=== PATIENT | female | born 1985 | race Caucasian/White ===

== ENCOUNTER 2016-12-20 20:08 | Emergency (ER) | payer OTHER ==
[2016-12-20 20:16] VITALS: BP 123/58; PULSE 80; RESP 18; TEMP 98.4
--- NOTE | 2016-12-20 20:23 | ED ---
Eye Problem HPI - General Chief complaint: Eye Problems Stated complaint: eye pain Time Seen by Provider: 12/20/16 20:17 Source: patient, RN notes reviewed Mode of arrival: ambulatory Limitations: no limitations - History of Present Illness Initial comments: 31-year-old female presents to emergency Department chief complaint of left eyebrow redness, itching, sandpaper like sensation. Patient states she's had this starting this morning. Patient states it started to clear drainage then turned yellow. Patient states that there is been no changes in vision. Patient states there is no pain is just irritated. Patient states that she hasn 't had any fever chills this denies any cough cold Raynaud's any fevers. Patient states she was concerned that she may have pink eye so she thought that she should be seen.Patient denies any recent fever, chills, shortness of breath , chest pain, back pain, abdominal pain, nausea vomiting, numbness or tingling, dysuria or hematuria, constipation or diarrhea, headaches or visual changes, or any other current symptoms. - Related Data Home Medications Medication Instructions Recorded Confirmed Acyclovir [Zovirax] 800 mg PO DAILY 12/20/16 12/20/16 Ibuprofen [Motrin] 200 - 400 mg PO Q6HR PRN 12/20/16 12/20/16 Previous Rx's Medication Instructions Recorded Tobramycin 0.3% Ophth Soln [Tobrex 1 drop LEFT EYE Q4H 5 Days 12/20/16 0.3% Ophth Soln] Allergies Allergy/AdvReac Type Severity Reaction Status Date / Time Penicillins Allergy Rash/Hives Verified 12/20/16 20:18 shellfish derived [Shellfish] Allergy Rash/Hives Verified 12/20/16 20:18 Review of Systems ROS Statement: Those systems with pertinent positive or pertinent negative responses have been documented in the HPI. ROS Other: All systems not noted in ROS Statement are negative. Past Medical History Past Medical History: No Reported History History of Any Multi-Drug Resistant Organisms: None Reported Past Surgical History: Section Additional Past Surgical History / Comment(s): D&C, endoscopy Past Psychological History: Anxiety, Depression Smoking Status: Never smoker Past Alcohol Use History: None Reported Past Drug Use History: None Reported General Exam Limitations: no limitations General appearance: alert, in no apparent distress Head exam: Present: atraumatic, normocephalic, normal inspection Eye exam: Present: PERRL, EOMI, conjunctival injection. Absent: scleral icterus , periorbital swelling, periorbital tenderness Expanded Eyelids: Normal Inspection: Right, Erythema: Left Pupils: Regular, Round: Bilateral Sclera/Conjunctival: Normal Inspection: Right, Injection: Left ENT exam: Present: normal exam, mucous membranes moist Neck exam: Present: normal inspection. Absent: tenderness, meningismus, lymphadenopathy Respiratory exam: Present: normal lung sounds bilaterally. Absent: respiratory distress, wheezes, rales, rhonchi, stridor Cardiovascular Exam: Present: regular rate, normal rhythm, normal heart sounds. Absent: systolic murmur, diastolic murmur, rubs, gallop, clicks Neurological exam: Present: alert, oriented X3, CN II-XII intact. Absent: motor sensory deficit Psychiatric exam: Present: normal affect, normal mood Skin exam: Present: warm, dry, intact, normal color. Absent: rash Course Vital Signs 12/20/16 20:14 Temperature 98.4 F Pulse Rate 80 Respiratory 18 Rate Blood Pressure 123/58 O2 Sat by Pulse 100 Oximetry Medical Decision Making - Medical Decision Making 31-year-old female presents emergency Department what appears to be a conjunctivitis to the left eye. At this time we will start patient on appropriate treatment for this. We discussed return parameters and follow-up. We discussed all the patient's questions. We did discuss additional care. Patient states she understood and all her questions have been answered. She'll be discharged. Disposition Clinical Impression: Conjunctivitis, left eye Disposition: HOME SELF-CARE Condition: Stable Instructions: Conjunctivitis (ED) Additional Instructions: Please use medication as discussed. Please follow up with family doctor if symptoms have not improved over the next two days. Please return to the emergency room if your symptoms increase or worsen or for any other concerns. Prescriptions: Tobramycin 0.3% Ophth Soln [Tobrex 0.3% Ophth Soln] 1 drop LEFT EYE Q4H 5 Days Referrals: Edgar Do MD [Primary Care Provider] - 1-2 days Time of Disposition: 20:23
== END 2016-12-20 20:39 | disposition home or self-care (01) ==
LOC: EC 20:08
DX: H10.9 Unspecified conjunctivitis (principal); Z88.0 Allergy status to penicillin
CPT/HCPCS: 99283

== ENCOUNTER 2017-02-24 02:28 | Emergency (ER) | payer OTHER ==
[2017-02-24 02:36] VITALS: BP 120/59; PULSE 65; RESP 18; TEMP 99.2
[2017-02-24] MEDS ORDERED: IBUPROFEN 600 MG TAB PO STA (02:41)
[2017-02-24] MEDS ORDERED: LIDOCAINE VISCOUS 300 MG/15 ML CUP MUCOUS MEM ONE (02:41)
--- NOTE | 2017-02-24 02:44 | ED ---
ENT HPI - General Chief complaint: ENT Stated complaint: Sore throat/difficulty swallowing/SOB Time Seen by Provider: 02/24/17 02:38 Source: patient, RN notes reviewed Mode of arrival: ambulatory Limitations: no limitations - History of Present Illness Initial comments: 31-year-old female presents to the emergency department with a chief complaint of sore throat. Patient states in the day yesterday she had a mild sore throat. Patient states the actual up she has some increased pain and swelling to the throat. Patient states it hurts to swallow. She states she was concerned due to the new pain and irritation so she thought that she should be seen. Patient denies chills. Denies a cough or sputum production. Patient denies any ear pain. Patient states she was concerned due to her continued pain and irritation so she thought that she should be evaluated. Patient denies any recent fever, chills, shortness of breath, chest pain, back pain, abdominal pain, nausea vomiting, numbness or tingling, dysuria or hematuria, constipation or diarrhea, headaches or visual changes, or any other current symptoms. - Related Data Home Medications Medication Instructions Recorded Confirmed Acyclovir [Zovirax] 800 mg PO DAILY 12/20/16 02/24/17 Allergies Allergy/AdvReac Type Severity Reaction Status Date / Time Penicillins Allergy Rash/Hives Verified 12/20/16 20:18 shellfish derived [Shellfish] Allergy Rash/Hives Verified 12/20/16 20:18 Review of Systems ROS Statement: Those systems with pertinent positive or pertinent negative responses have been documented in the HPI. ROS Other: All systems not noted in ROS Statement are negative. Past Medical History Past Medical History: No Reported History History of Any Multi-Drug Resistant Organisms: MRSA Date of last positivie culture/infection: 2012 MDRO Source:: right buttock Past Surgical History: Section Additional Past Surgical History / Comment(s): D&C, endoscopy Past Psychological History: Anxiety, Depression Smoking Status: Never smoker Past Alcohol Use History: None Reported Past Drug Use History: None Reported General Exam - General Exam Comments Initial Comments: General exam: Alert, active, comfortable in no apparent distress Head: Normocephalic Eyes: Normal reaction of pupils, equal size, normal range of extraocular motion Ears: normal external ear canals, pink tympanic membranes with normal cone of light Nose: clear with pink turbinates Throat: Mild erythema, no exudates with normal sized tonsils Neck: no masses, no nuchal rigidity Chest: no chest wall deformity Lungs: equal air entry with no crackles or wheeze CVS: S1 and S2 normal with no audible mumurs, regular rhythm Abdomen: no hepatosplenomegaly, normal bowel sounds, no guarding or rigidit Spine: no scoliosis or deformity Skin: no rashes Neurological: No focal deficits, tone is normal in all 4 extremities Limitations: no limitations Course Vital Signs 02/24/17 02:31 Temperature 99.2 F Pulse Rate 65 Respiratory 18 Rate Blood Pressure 120/59 O2 Sat by Pulse 98 Oximetry Medical Decision Making - Medical Decision Making 31-year-old male presents emergency Department chief complaint of a pharyngitis. This time shot was negative. Discussed this time patient is most symptomatic pharyngitis. Certainly discussed continue Motrin Tylenol for pain control. We discussed signs and follow-up. Patient stated that she understood. Plan. . She will be discharged. - Lab Data Lab Results 02/24/17 Range/Units 02:48 Group A Strep Rapid Negative (Negative) Disposition Clinical Impression: Acute viral pharyngitis Disposition: HOME SELF-CARE Condition: Stable Instructions: Pharyngitis (ED) Additional Instructions: Please use medication as discussed. Please follow up with family doctor if symptoms have not improved over the next two days. Please return to the emergency room if your symptoms increase or worsen or for any other concerns. Referrals: Edgar Do MD [Primary Care Provider] - 1-2 days Time of Disposition: 03:22
[2017-02-24] MEDS ORDERED: ACETAMINOPHEN TAB 500 MG TAB PO STA (02:56)
== END 2017-02-24 03:30 | disposition home or self-care (01) ==
LOC: EC 02:28
DX: J02.9 Acute pharyngitis, unspecified (principal); Z88.0 Allergy status to penicillin; Z91.013 Allergy to seafood
CPT/HCPCS: 87081; 87430; 99283

== ENCOUNTER 2017-06-15 10:09 | Emergency (ER) | payer OTHER ==
[2017-06-15 10:13] VITALS: BP 130/75; PULSE 73; RESP 17
[2017-06-15 10:28] VITALS: TEMP 98.3
--- NOTE | 2017-06-15 10:35 | ED ---
General Adult HPI - General Chief complaint: Upper Respiratory Infection Stated complaint: Chest congestion Time Seen by Provider: 06/15/17 10:11 Source: patient, RN notes reviewed Mode of arrival: ambulatory Limitations: no limitations - History of Present Illness Initial comments: This is a 31-year-old female presents emergency Department complaining of coughing and coughing up green sputum for a couple days. Patient states she has the chills which has not noted a fever. Patient states her body aches everywhere as well. Patient states she has a little bit of congestion but no facial pain. Patient denies any sore throat or ear pain. Patient denies any chest pain or difficulty breathing or shortness of breath. Patient denies any smoking history. Patient states she's had no rashes or lesions. Patient denies any abdominal pain patient denies nausea vomiting diarrhea. - Related Data Home Medications Medication Instructions Recorded Confirmed Acyclovir [Zovirax] 800 mg PO DAILY 12/20/16 02/24/17 Previous Rx's Medication Instructions Recorded Azithromycin [Zithromax Tri-Harley] 500 mg PO DAILY #3 tab 06/15/17 Allergies Allergy/AdvReac Type Severity Reaction Status Date / Time Penicillins Allergy Rash/Hives Verified 06/15/17 10:10 shellfish derived [Shellfish] Allergy Rash/Hives Verified 06/15/17 10:10 Review of Systems ROS Statement: Those systems with pertinent positive or pertinent negative responses have been documented in the HPI. ROS Other: All systems not noted in ROS Statement are negative. Past Medical History Past Medical History: No Reported History History of Any Multi-Drug Resistant Organisms: MRSA Date of last positivie culture/infection: 2012 MDRO Source:: right buttock Past Surgical History: Section Additional Past Surgical History / Comment(s): D&C, endoscopy Past Psychological History: Anxiety, Depression Smoking Status: Never smoker Past Alcohol Use History: None Reported Past Drug Use History: None Reported General Exam - General Exam Comments Initial Comments: GENERAL: Patient is well-developed and well-nourished. Patient is nontoxic and well- hydrated and is in mild distress. ENT: Neck is soft and supple. No significant lymphadenopathy is noted. Oropharynx is clear. Moist mucous membranes. Neck has full range of motion without eliciting any pain. EYES: The sclera were anicteric and conjunctiva were pink and moist. Extraocular movements were intact and pupils were equal round and reactive to light. Eyelids were unremarkable. PULMONARY: Unlabored respirations. Good breath sounds bilaterally. No audible rales rhonchi or wheezing was noted. CARDIOVASCULAR: There is a regular rate and rhythm without any murmurs gallops or rubs. ABDOMEN: Soft and nontender with normal bowel sounds. No palpable organomegaly was noted. There is no palpable pulsatile mass. SKIN: Skin is clear with no lesions or rashes and otherwise unremarkable. NEUROLOGIC: Patient is alert and oriented x3. Cranial nerves II through XII are grossly intact. Motor and sensory are also intact. Normal speech, volume and content. Symmetrical smile. MUSCULOSKELETAL: Normal extremities with adequate strength and full range of motion. No lower extremity swelling or edema. No calf tenderness. LYMPHATICS: No significant lymphadenopathy is noted PSYCHIATRIC: Normal psychiatric evaluation. Limitations: no limitations Course Vital Signs 06/15/17 06/15/17 10:11 10:26 Temperature 99.0 F 98.3 F Pulse Rate 73 Respiratory 17 Rate Blood Pressure 130/75 O2 Sat by Pulse 98 Oximetry Disposition Clinical Impression: Acute bronchitis Disposition: HOME SELF-CARE Instructions: Acute Bronchitis (ED) Prescriptions: Azithromycin [Zithromax Tri-Harley] 500 mg PO DAILY #3 tab Referrals: Edgar Do MD [Primary Care Provider] - 1-2 days Time of Disposition: 10:34
== END 2017-06-15 10:45 | disposition home or self-care (01) ==
LOC: EC 10:09
DX: J20.9 Acute bronchitis, unspecified (principal); Z88.0 Allergy status to penicillin; Z91.013 Allergy to seafood; Z79.899 Other long term (current) drug therapy
CPT/HCPCS: 99283

== ENCOUNTER 2018-07-12 21:37 | Emergency (ER) | payer OTHER ==
[2018-07-12 22:11] VITALS: RESP 16; TEMP 98.2
[2018-07-12 23:42] VITALS: BP 139/78; PULSE 78
[2018-07-12 23:50] LABS: Appearance,Urine Clear (Clear); Bilirubin,Urine Negative (Negative); Blood,Urine Negative (Negative); Color,Urine Yellow; Glucose,Urine (UA) Negative (Negative); Ketones,Urine Negative (Negative); Leukocyte Esterase,Urine Large (Negative); Mucus,Urine Rare /hpf; Nitrite,Urine Negative (Negative); PH, Urine 5.5 (5.0-8.0); Protein,Urine Negative (Negative); RBC,Urine 4 /hpf (0-5); Specific Gravity,Urine 1.026 (1.001-1.035); Squamous Epithelial Cell,Urine 1 /hpf (0-4); Urobilinogen,Urine <2.0 mg/dL (<2.0); WBC,Urine 4 /hpf (0-5)
[2018-07-13] MEDS ORDERED: cefTRIAXone 250 MG VIAL IM STA (00:43)
[2018-07-13] MEDS ORDERED: AZITHROMYCIN 250 MG TAB PO STA (00:43)
[2018-07-13] MEDS ORDERED: metroNIDAZOLE 500 MG TAB PO STA (00:43)
--- NOTE | 2018-07-13 00:44 | ED ---
Female Urogenital HPI - General Chief complaint: Urogenital Stated complaint: Female Time Seen by Provider: 07/12/18 23:08 Source: patient Mode of arrival: ambulatory - History of Present Illness Initial comments: This patient is a 32-year-old woman who presents to be evaluated for vaginal discharge, and pruritus. Patient denies having fever or chills. She is not having any abdominal pain. No dyspareunia. The patient does have concerns about possible STI exposure. MD Complaint: vaginal discharge -: days(s) Location: labia Radiation: non-radiating Severity: moderate Consistency: constant Improves with: none Worsens with: none - Related Data Home Medications Medication Instructions Recorded Confirmed Acyclovir [Zovirax] 800 mg PO DAILY 12/20/16 06/15/17 Previous Rx's Medication Instructions Recorded Azithromycin [Zithromax Tri-Harley] 500 mg PO DAILY #3 tab 06/15/17 Allergies Allergy/AdvReac Type Severity Reaction Status Date / Time Penicillins Allergy Rash/Hives Verified 06/15/17 10:37 shellfish derived [Shellfish] Allergy Rash/Hives Verified 06/15/17 10:37 Review of Systems ROS Statement: Those systems with pertinent positive or pertinent negative responses have been documented in the HPI. ROS Other: All systems not noted in ROS Statement are negative. Constitutional: Denies: fever, chills Respiratory: Denies: cough, dyspnea Cardiovascular: Denies: chest pain Gastrointestinal: Denies: abdominal pain Genitourinary: Reports: discharge. Denies: dysuria, frequency, hematuria, abnormal menses, dyspareunia Skin: Denies: rash Past Medical History Past Medical History: No Reported History Additional Past Medical History / Comment(s): herpes History of Any Multi-Drug Resistant Organisms: MRSA Date of last positivie culture/infection: 2012 MDRO Source:: right buttock Past Surgical History: Section Additional Past Surgical History / Comment(s): D&C, endoscopy Past Psychological History: Anxiety, Depression Smoking Status: Never smoker Past Alcohol Use History: None Reported Past Drug Use History: None Reported General Exam General appearance: alert, in no apparent distress ENT exam: Present: normal oropharynx Respiratory exam: Present: normal lung sounds bilaterally. Absent: respiratory distress, wheezes, rales, rhonchi, stridor Cardiovascular Exam: Present: regular rate, normal rhythm, normal heart sounds. Absent: systolic murmur, diastolic murmur, rubs, gallop GI/Abdominal exam: Present: soft. Absent: distended, tenderness, guarding, rebound, mass External exam: Present: normal external exam. Absent: erythema, swelling, lesions Speculum exam: Present: vaginal discharge. Absent: erythema, cervical discharge , vaginal bleeding, foreign body By manual exam: Present: cervical motion tenderness (Mild). Absent: adnexal tenderness, adnexal mass, uterine enlargement, uterine tenderness Skin exam: Present: warm, dry, intact, normal color. Absent: rash Course Vital Signs 07/12/18 07/12/18 22:07 23:40 Temperature 98.2 F Pulse Rate 84 78 Respiratory 16 16 Rate Blood Pressure 123/70 139/78 O2 Sat by Pulse 100 98 Oximetry Medical Decision Making - Medical Decision Making This patient is a 32-year-old woman presenting with moderate amount of vaginal discharge, some pruritus, and she does express concern about possibility of STI exposure. On the exam there is also some minimal cervical tenderness. We discussed that the labs are send out labs, and the risks and benefits of empiric treatments and she does elect to proceed with that, pending the return of the labs. The patient is given antibiotics and we discussed appropriate further care as well as return parameters. - Lab Data Lab Results 07/12/18 07/12/18 07/13/18 Range/Units 23:38 23:38 00:40 Urine Color Yellow Urine Appearance Clear (Clear) Urine pH 5.5 (5.0-8.0) Ur Specific [place] 1.026 (1.001-1.035) Urine Protein Negative (Negative) Urine Glucose (UA) Negative (Negative) Urine Ketones Negative (Negative) Urine Blood Negative (Negative) Urine Nitrite Negative (Negative) Urine Bilirubin Negative (Negative) Urine Urobilinogen <2.0 (<2.0) mg/dL Ur Leukocyte Esterase Large H (Negative) Urine RBC 4 (0-5) /hpf Urine WBC 4 (0-5) /hpf Ur Squamous Epith Cells 1 (0-4) /hpf Urine Mucus Rare H (None) /hpf Urine HCG, Qual Not Detected (Not Detectd) Chlamydia Source Vagina Chlamydia DNA (PCR) Negative (Neg,Equiv) N. gonorrhoeae Source N.gonorrhoeae DNA Probe (Neg,Equiv) 07/13/18 Range/Units 00:40 Urine Color Urine Appearance (Clear) Urine pH (5.0-8.0) Ur Specific [place] (1.001-1.035) Urine Protein (Negative) Urine Glucose (UA) (Negative) Urine Ketones (Negative) Urine Blood (Negative) Urine Nitrite (Negative) Urine Bilirubin (Negative) Urine Urobilinogen (<2.0) mg/dL Ur Leukocyte Esterase (Negative) Urine RBC (0-5) /hpf Urine WBC (0-5) /hpf Ur Squamous Epith Cells (0-4) /hpf Urine Mucus (None) /hpf Urine HCG, Qual (Not Detectd) Chlamydia Source Chlamydia DNA (PCR) (Neg,Equiv) N. gonorrhoeae Source Vagina N.gonorrhoeae DNA Probe Negative (Neg,Equiv) Disposition Clinical Impression: Cervicitis Disposition: HOME SELF-CARE Condition: Good Instructions: Cervicitis (ED) Is patient prescribed a controlled substance at d/c from ED?: No Referrals: Edgar Do MD [Primary Care Provider] - 1-2 days Celestino Valdovinos DO [Doctor of Osteopathic Medicine] - 1-2 days
[2018-07-15 14:06] LABS: N. gonorrhoeae,PCR Negative (Neg,Equiv); Neisseria Source Vagina
[2018-07-15 14:09] LABS: C. trachomatis,PCR Negative (Neg,Equiv); Chlamydia trachomatis Source Vagina
== END 2018-07-13 01:21 | disposition home or self-care (01) ==
LOC: EC 21:37
DX: N72 Inflammatory disease of cervix uteri (principal); Z86.14 Personal history of Methicillin resistant Staphylococcus aureus infection; Z88.0 Allergy status to penicillin; Z91.013 Allergy to seafood
CPT/HCPCS: 81001; 81025; 87491; 87591; 99284; 96372; J0696

== ENCOUNTER 2020-04-14 17:40 | Emergency (ER) | payer OTHER ==
[2020-04-14 17:51] VITALS: RESP 18
[2020-04-14] MEDS ORDERED: SODIUM CHLORIDE 0.9% 1,000 ML IV ONE (17:51)
--- NOTE | 2020-04-14 18:09 | ED ---
Female Urogenital HPI - General Chief complaint: Vaginal Bleeding Stated complaint: 19.5 wks preg/vaginal bleeding Time Seen by Provider: 04/14/20 17:51 Source: patient Mode of arrival: ambulatory Limitations: no limitations - History of Present Illness Initial comments: 34-year-old female presenting today for chief complaint of possible vaginal bleeding and . Patient states she is currently 19 weeks 5 days and has had sharp b/l lower pelvic pain for the past two months with this . Patient states that this has been evaluated by her OBGYN on multiple occasions and everything "checks out fine" Patient states she has no new pain and experienced the sharp lower pelvic pain yesterday-- she states that today she went to use the restroom and she and noticed a light pink tinge to the toilet paper as though she was just starting a period. Pt denies new pain. Patient states she wiped again and then noted that the toilet paper was even bit sharpener and looked almost normal. She states she did not note blood in her underwear. Denies lightheadness, presyncope on arrival. VS stable. BP within acceptable limits as well as HR. Patient denies additional complaints, denies vomiting, diarrhea, fevers, cough. Patient appears nontoxic in no distress on arrival. Dr. Stark out of [place] is OBGYN. - Related Data Home Medications Medication Instructions Recorded Confirmed Acyclovir [Zovirax] 800 mg PO DAILY 12/20/16 06/15/17 Previous Rx's Medication Instructions Recorded Azithromycin [Zithromax Tri-Harley] 500 mg PO DAILY #3 tab 06/15/17 Allergies Allergy/AdvReac Type Severity Reaction Status Date / Time Penicillins Allergy Rash/Hives Verified 04/14/20 17:44 shellfish derived [Shellfish] Allergy Rash/Hives Verified 04/14/20 17:44 Review of Systems ROS Statement: Those systems with pertinent positive or pertinent negative responses have been documented in the HPI. ROS Other: All systems not noted in ROS Statement are negative. Past Medical History Past Medical History: No Reported History Additional Past Medical History / Comment(s): herpes History of Any Multi-Drug Resistant Organisms: MRSA Date of last positivie culture/infection: 2012 MDRO Source:: right buttock Past Surgical History: Section Additional Past Surgical History / Comment(s): D&C, endoscopy Past Psychological History: Anxiety, Depression Smoking Status: Never smoker Past Alcohol Use History: None Reported Past Drug Use History: None Reported General Exam - General Exam Comments Initial Comments: General: The patient is awake and alert, in no distress, and does not appear acutely ill. Eye: +3 mm pupils are equal, round and reactive to light, extra-ocular movements are intact. No nystagmus. There is normal conjunctiva bilaterally. No signs of icterus. Ears, nose, mouth and throat: There are moist mucous membranes and no oral lesions. Neck: The neck is supple, there is no tenderness or JVD. Cardiovascular: There is a regular rate and rhythm. No murmur, rub or gallop is appreciated. Respiratory: Lungs are clear to auscultation, respirations are non-labored, breath sounds are equal. No wheezes, stridor, rales, or rhonchi. Gastrointestinal: Soft, non-distended, uterine enlargement consistent with abdomen without masses or organomegaly noted. There is no rebound or guarding present. Pelvic: [place] mucosa, did not place speculum deep, only tip to assess amount of bleeding (none appreciated) No digital exam was performed. Musculoskeletal: Normal ROM, no tenderness. Strength 5/5. Sensation intact. Radial pulses equal bilaterally 2+. Neurological: A&O x 3. CN II-XII intact grossly, There are no obvious motor or sensory deficits. Coordination appears grossly intact. Speech is normal. Skin: Skin is warm and dry and no rashes or lesions are noted. No LE edema. Psychiatric: Cooperative, appropriate mood & affect, normal judgment. Limitations: no limitations Course Vital Signs 04/14/20 04/14/20 17:45 20:30 Temperature 98.6 F 98 F Pulse Rate 89 80 Respiratory 18 18 Rate Blood Pressure 130/75 125/72 O2 Sat by Pulse 98 99 Oximetry - Reevaluation(s) Reevaluation #1: 04/14/20 19:25 Attempted to contact patient flight operation coordinator OBGYN for her clinic, awaiting call back to discuss placenta previa Reevaluation #2: SPoke with Dr. Stevens covering for patient OBGYN she states that the placenta previa is not a concern at this time, recommends discharge with pelvic rest whcih was discussed wtih patient. Patient is agreeable to this care plan and discharge at this time. Medical Decision Making - Medical Decision Making 34-year-old female presenting today for chief complaint of spotting and preg franki patient is 19.5 weeks. On ultrasound there is low lying placenta over the cervix concerning for placenta previa. Placental sandra. A consult patient's on- call OPTICAL MANAGER who stated that this is not of concern at this time given patient is hemodynamically stable with no bleeding currently. She recommended pelvic rest. In office next week patient has a scheduled appointment for Thursday. Patient has no additional complaints she appears well and will be discharged with OBGYN. US copy was provided to patient. Return parameters were discussed with patient who was agreeable to care plan and discharge at this time. Pt is to return for any bleeding immediately. Dr Milton agreeable to care plan and discharge. - Lab Data Result diagrams: 04/14/20 18:10 04/14/20 18:10 Lab Results 04/14/20 04/14/20 04/14/20 Range/Units 18:00 18:10 18:10 WBC 11.5 H (3.8-10.6) k/uL RBC 4.56 (3.80-5.40) m/uL Hgb 12.7 (11.4-16.0) gm/dL Hct 38.7 (34.0-46.0) % MCV 84.9 (80.0-100.0) fL MCH 27.8 (25.0-35.0) pg MCHC 32.7 (31.0-37.0) g/dL RDW 14.2 (11.5-15.5) % Plt Count 188 (150-450) k/uL Neutrophils % 79 % Lymphocytes % 14 % Monocytes % 4 % Eosinophils % 1 % Basophils % 0 % Neutrophils # 9.0 H (1.3-7.7) k/uL Lymphocytes # 1.6 (1.0-4.8) k/uL Monocytes # 0.5 (0-1.0) k/uL Eosinophils # 0.1 (0-0.7) k/uL Basophils # 0.0 (0-0.2) k/uL PT 9.9 (9.0-12.0) sec INR 0.9 (<1.2) APTT 24.0 (22.0-30.0) sec Sodium (137-145) mmol/L Potassium (3.5-5.1) mmol/L Chloride (98-107) mmol/L Carbon Dioxide (22-30) mmol/L Anion Gap mmol/L BUN (7-17) mg/dL Creatinine (0.52-1.04) mg/dL Est GFR (CKD-EPI)AfAm (>60 ml/min/1.73 sqM) Est GFR (CKD-EPI)NonAf (>60 ml/min/1.73 sqM) Glucose (74-99) mg/dL Calcium (8.4-10.2) mg/dL Total Bilirubin (0.2-1.3) mg/dL AST (14-36) U/L ALT (4-34) U/L Alkaline Phosphatase (38-126) U/L Total Protein (6.3-8.2) g/dL Albumin (3.5-5.0) g/dL Urine Color Light Yellow Urine Appearance Clear (Clear) Urine pH 5.5 (5.0-8.0) Ur Specific [place] 1.009 (1.001-1.035) Urine Protein Negative (Negative) Urine Glucose (UA) Negative (Negative) Urine Ketones 2+ H (Negative) Urine Blood Negative (Negative) Urine Nitrite Negative (Negative) Urine Bilirubin Negative (Negative) Urine Urobilinogen <2.0 (<2.0) mg/dL Ur Leukocyte Esterase Negative (Negative) Blood Type Blood Type Recheck Bld Type Recheck Status 04/14/20 04/14/20 Range/Units 18:10 18:10 WBC (3.8-10.6) k/uL RBC (3.80-5.40) m/uL Hgb (11.4-16.0) gm/dL Hct (34.0-46.0) % MCV (80.0-100.0) fL MCH (25.0-35.0) pg MCHC (31.0-37.0) g/dL RDW (11.5-15.5) % Plt Count (150-450) k/uL Neutrophils % % Lymphocytes % % Monocytes % % Eosinophils % % Basophils % % Neutrophils # (1.3-7.7) k/uL Lymphocytes # (1.0-4.8) k/uL Monocytes # (0-1.0) k/uL Eosinophils # (0-0.7) k/uL Basophils # (0-0.2) k/uL PT (9.0-12.0) sec INR (<1.2) APTT (22.0-30.0) sec Sodium 134 L (137-145) mmol/L Potassium 4.0 (3.5-5.1) mmol/L Chloride 105 (98-107) mmol/L Carbon Dioxide 20 L (22-30) mmol/L Anion Gap 9 mmol/L BUN 9 (7-17) mg/dL Creatinine 0.53 (0.52-1.04) mg/dL Est GFR (CKD-EPI)AfAm >90 (>60 ml/min/1.73 sqM) Est GFR (CKD-EPI)NonAf >90 (>60 ml/min/1.73 sqM) Glucose 90 (74-99) mg/dL Calcium 8.7 (8.4-10.2) mg/dL Total Bilirubin 0.2 (0.2-1.3) mg/dL AST 21 (14-36) U/L ALT 18 (4-34) U/L Alkaline Phosphatase 61 (38-126) U/L Total Protein 6.6 (6.3-8.2) g/dL Albumin 3.5 (3.5-5.0) g/dL Urine Color Urine Appearance (Clear) Urine pH (5.0-8.0) Ur Specific [place] (1.001-1.035) Urine Protein (Negative) Urine Glucose (UA) (Negative) Urine Ketones (Negative) Urine Blood (Negative) Urine Nitrite (Negative) Urine Bilirubin (Negative) Urine Urobilinogen (<2.0) mg/dL Ur Leukocyte Esterase (Negative) Blood Type O Positive Blood Type Recheck O Pos Bld Type Recheck Status No Disposition Clinical Impression: Placenta previa, Spotting affecting Disposition: HOME SELF-CARE Condition: Good Instructions (If sedation given, give patient instructions): Placenta Previa (ED), Pelvic Rest (ED) Additional Instructions: Please use medication as discussed. Please follow-up with OBGYN in the next week. Please bring ultrasound to the appointment, and return for any return bleeding, or pain. Pelvic rest as discussed. Please return to emergency room if the symptoms increase or worsen or for any other concerns. Is patient prescribed a controlled substance at d/c from ED?: No Referrals: Nonstaff,Physician [Primary Care Provider] - 1-2 days Time of Disposition: 20:07
[2020-04-14 18:25] LABS: Basophils % (A) 0 %; Eosinophils # (A) 0.1 k/uL (0-0.7); Eosinophils % (A) 1 %; HCT 38.7 % (34.0-46.0); HGB 12.7 gm/dL (11.4-16.0); Lymphocytes # (A) 1.6 k/uL (1.0-4.8); Lymphocytes % (A) 14 %; MCH 27.8 pg (25.0-35.0); MCHC 32.7 g/dL (31.0-37.0); MCV 84.9 fL (80.0-100.0); Monocytes # (A) 0.5 k/uL (0-1.0); Monocytes % (A) 4 %; Neutrophils % (A) 79 %; Platelet Count 188 k/uL (150-450); RBC 4.56 m/uL (3.80-5.40); RDW 14.2 % (11.5-15.5); WBC 11.5 k/uL (3.8-10.6)
[2020-04-14 18:34] LABS: ALT 18 U/L (4-34); AST 21 U/L (14-36); African American GFR (CKD) >90 (>60 ml/min/1.73 sqM); Albumin 3.5 g/dL (3.5-5.0); Alkaline Phosphatase 61 U/L (38-126); Anion Gap 9 mmol/L; Blood Urea Nitrogen 9 mg/dL (7-17); Calcium 8.7 mg/dL (8.4-10.2); Carbon Dioxide 20 mmol/L (22-30); Chloride 105 mmol/L (98-107); Glucose 90 mg/dL (74-99); INR 0.9 (<1.2); Non-African American GFR(CKD) >90 (>60 ml/min/1.73 sqM); Prothrombin Time 9.9 sec (9.0-12.0); Sodium 134 mmol/L (137-145); Total Bilirubin 0.2 mg/dL (0.2-1.3); Total Protein 6.6 g/dL (6.3-8.2)
--- NOTE | 2020-04-14 19:04 | US ---
EXAMINATION TYPE: US OB >= 14 wk fetus DATE OF EXAM: 04/14/2020 COMPARISON: None CLINICAL HISTORY: painIntermittent spotting and cramping x couple days TECHNIQUE: Transabdominal (TA) GESTATIONAL AGE / DATING Physician Established: (19 weeks/5 days) EDC: 11/03/2020 Dates by LMP: Unknown Dates by First Scan: No previous here Dates by Current Scan: (19 weeks/6 days) EDC: 09/02/2020 SURVEY IUP: Single PLACENTA: Posterior/Fundal, 2.2 x 2.0cm hypoechoic area seen within fundal portion of placenta PREVIA: Low Lying ANTHONY: 14.0 cm Normal CERVICAL LENGTH (transabdominal: norm > 3.0cm): 3.2 cm BIOMETRY PRESENTATION: Breech LIE: Transverse with head maternal R BPD: 4.4 cm 19 weeks / 3 days HC: 16.6 cm 19 weeks / 3 days AC: 15.1 cm 20 weeks / 3 days FL: 3.2 cm 20 weeks / 0 days ESTIMATED WEIGHT IN GRAMS: 329 grams ESTIMATED WEIGHT IN LBS/OZ: 0 lbs. 12 oz. WEIGHT PERCENTAGE BASED ON ESTABLISHED DATES: 65% HC/AC: 1.10 Normal FL/AC: 21% HEART RATE: 144 bpm RHYTHM: Normal Live single IUP measuring 19 weeks, 6 days with a heart rate of 144bpm and an estimated delivery date of 09/02/2020, 2.2 x 2.0cm hypoechoic area seen within fundal portion of placenta. IMPRESSION: 1. Low-lying placenta with the placental tip located approximately 1.4 cm in the cervix. 2. There is a hypoechoic area measuring 2.2 cm in the posterior fundal placenta. This appears interna l and therefore may represent a placental sandra. 3. Breech presentation of a single live intrauterine with a sonographic age of 19 weeks and 6 days and estimated date of delivery of 09/02/2020.
[2020-04-14 19:09] LABS: Appearance,Urine Clear (Clear); Bilirubin,Urine Negative (Negative); Blood,Urine Negative (Negative); Color,Urine Light Yellow; Glucose,Urine (UA) Negative (Negative); Ketones,Urine 2+ (Negative); Leukocyte Esterase,Urine Negative (Negative); Nitrite,Urine Negative (Negative); PH, Urine 5.5 (5.0-8.0); Protein,Urine Negative (Negative); Specific Gravity,Urine 1.009 (1.001-1.035); Urobilinogen,Urine <2.0 mg/dL (<2.0)
[2020-04-14 20:30] VITALS: BP 125/72; PULSE 80; TEMP 98
== END 2020-04-14 20:31 | disposition home or self-care (01) ==
LOC: EC 17:40
DX: O44.02 Complete placenta previa NOS or without hemorrhage, second trimester (principal); O26.852 Spotting complicating pregnancy, second trimester; Z3A.19 19 weeks gestation of pregnancy
CPT/HCPCS: 36415; 76805; 80053; 81003; 85025; 85610; 85730; 86900; 86901; 96360; 99284

== ENCOUNTER 2020-05-24 13:50 | Outpatient (CLI) | payer OTHER ==
[2020-05-24 14:52] LABS: Appearance,Urine Clear (Clear); Bilirubin,Urine Negative (Negative); Blood,Urine Negative (Negative); Color,Urine Yellow; Glucose,Urine (UA) Negative (Negative); Ketones,Urine Negative (Negative); Leukocyte Esterase,Urine Trace (Negative); Mucus,Urine Rare /hpf; Nitrite,Urine Negative (Negative); PH, Urine 6.5 (5.0-8.0); Protein,Urine Negative (Negative); RBC,Urine <1 /hpf (0-5); Specific Gravity,Urine 1.022 (1.001-1.035); Squamous Epithelial Cell,Urine 4 /hpf (0-4); Urobilinogen,Urine <2.0 mg/dL (<2.0); WBC,Urine 2 /hpf (0-5)
[2020-05-24 15:55] VITALS: BP 129/78; PULSE 80; RESP 15; TEMP 97.2
--- NOTE | 2020-06-10 12:48 | P.MSEPDOC ---
Presenting Problems - Arrival Data Date of Arrival on Unit: 05/24/20 Time of Arrival on Unit: 13:50 Mode of Transport: Wheelchair - Complaint OB-Reason for Admission/Chief Complaint: Other Comment: swelling in feet and legs Medical History - Information : 4 Para: 2 Term: 2 : 0 Abortions: Spontaneous or Elective: 1 Number of Living Children: 2 - Gestational Age Gestational Age by WENDY (wks/days): 25 Weeks and 3 Days Review of Systems - Review of Systems Constitutional: No problems Breast: No problems ENT: No problems Cardiovascular: No problems Respiratory: No problems Gastrointestinal: No problems Genitourinary: No problems Musculoskeletal: No problems Neurological: No problems Skin: No problems Vital Signs - Temperature Temperature: 97.2 F Temperature Source: Temporal Artery Scan - Pulse Brachial Pulse Rate: 80 Pulse Assessment Method: Automatic Cuff - Respirations Respiratory Rate: 15 Oxygen Delivery Method: Room Air O2 Sat by Pulse Oximetry: 98 - Blood Pressure Right Arm Sitting Blood Pressure: 129/78 Blood Pressure Mean: 95 Blood Pressure Source: Automatic Cuff Medical Screen Scoring (Pre) - Cervical Exam Dilation: Exam Deferred Effacement: Exam Deferred Membranes: Intact - Uterine Contractions Frequency: N/A Duration: N/A Intensity: N/A - Maternal Vital Signs Maternal Temperature: N/A Maternal Blood Pressure: N/A Signs of Preeclampsia: N/A Maternal Respirations: N/A - Maternal Trauma Maternal Trauma: N/A - Assessment - Baby A Baseline FHR: 135 Heart Rate - NICHD Category: Category I (Normal) = 0 NST: Reactive Position: N/A Station: N/A - Total Score - Baby A Total Score - Baby A: 0 - Total Score - Baby B Total Score - Baby B: 0 - Total Score - Baby C Total Score - Baby C: 0 - Level of Risk - Baby A Level of Risk - Baby A: Low (0-5) - Level of Risk - Baby B Level of Risk - Baby B: Low (0-5) - Level of Risk - Baby C Level of Risk - Baby C: Low (0-5) Physician Notification (Pre) - Physician Notified Physician Notified Date: 05/24/20 Physician Notified Time: 15:21 New Order Received: Yes - Notification Comment Comment: reported gest age, , pt here for swelling in lower extremeties,U/A and BP results. Reported concerns for pt's mental health and her thoughts of harming herself. Orders received to take pt to the ER for evaluatin per alexandre Serrato. RN wheeled pt to the ER registration Disposition - Disposition OB Disposition: Transfer to other dept./facility, Written follow up instructions reviewed Transferred to:: ER Discharge Date: 05/24/20 Discharge Time: 15:43 I agree with the RN Medical Screening Exam: Yes Risk & Benefit of care provided described in d/c instruction: Yes Diagnosis: RELATED CONDITIONS, UNSPECIFIED, SECOND TRIMESTER
== END 2020-05-24 15:43 | disposition other institution (70) ==
LOC: FBPOP 13:50
PROVIDERS: ATTEND Obstetrics & Gynecology
DX: O26.92 Pregnancy related conditions, unspecified, second trimester (principal); Z3A.25 25 weeks gestation of pregnancy
CPT/HCPCS: 81001; G0463; 99213

== ENCOUNTER 2020-05-24 15:38 | Emergency (ER) | payer OTHER ==
--- NOTE | 2020-05-24 16:04 | ED ---
Psych HPI - General Chief Complaint: Psychiatric Symptoms Stated Complaint: Depression Time Seen by Provider: 05/24/20 15:46 Source: patient, RN notes reviewed Mode of arrival: ambulatory - History of Present Illness Initial Comments: Is a 34-year-old female who currently is 25 weeks who was sent down from the labor and delivery department after being evaluated her pedal edema with complaints of depression and suicidal thoughts. Patient states she did have depressive type problems after her last daughter was born she's not on any current medication. She states that she has situational problems with her marriage at this time. She has had suicidal thoughts but states she would not act on it due to her other children and the impending of this next baby. She states she has been tearful. Feels detached and on engage with her family. She does state it would be self is to harm her self and not think her children. No new medications no fevers chills nausea vomiting sweats no other modifying factors at this time MD Complaint: suicidal ideation, feels depressed - Related Data Home Medications Medication Instructions Recorded Confirmed Acyclovir [Zovirax] 800 mg PO DAILY 12/20/16 05/24/20 Jkg-[id number] Acid 1 cap PO DAILY 05/24/20 05/24/20 [-U Capsule (formulary)] Allergies Allergy/AdvReac Type Severity Reaction Status Date / Time Penicillins Allergy Rash/Hives Verified 05/24/20 18:17 shellfish derived [Shellfish] Allergy Rash/Hives Verified 05/24/20 18:17 Review of Systems ROS Statement: Those systems with pertinent positive or pertinent negative responses have been documented in the HPI. ROS Other: All systems not noted in ROS Statement are negative. Past Medical History Past Medical History: No Reported History Additional Past Medical History / Comment(s): herpes History of Any Multi-Drug Resistant Organisms: None Reported, MRSA Date of last positivie culture/infection: 2012 MDRO Source:: right buttock Past Surgical History: Section Additional Past Surgical History / Comment(s): D&C, endoscopy Past Psychological History: Anxiety, Depression Smoking Status: Never smoker General Exam - General Exam Comments Initial Comments: This is a well-developed well-nourished awake alert oriented 3 female Limitations: no limitations General appearance: alert, in no apparent distress Head exam: Present: atraumatic, normocephalic, normal inspection Eye exam: Present: normal appearance, PERRL, EOMI. Absent: scleral icterus, conjunctival injection, periorbital swelling ENT exam: Present: normal exam, mucous membranes moist Neck exam: Present: normal inspection. Absent: tenderness, meningismus, lymphadenopathy Respiratory exam: Present: normal lung sounds bilaterally. Absent: respiratory distress, wheezes, rales, rhonchi, stridor Cardiovascular Exam: Present: regular rate, normal rhythm, normal heart sounds. Absent: systolic murmur, diastolic murmur, rubs, gallop, clicks GI/Abdominal exam: Present: other (Abdomen distended consistent with gestational age) Extremities exam: Present: pedal edema Back exam: Present: full ROM Neurological exam: Present: alert, oriented X3, CN II-XII intact Psychiatric exam: Present: depressed, flat affect Skin exam: Present: warm, dry, intact, normal color. Absent: rash Course Vital Signs 05/24/20 15:43 Temperature 98.4 F Pulse Rate 81 Respiratory 16 Rate Blood Pressure 127/75 O2 Sat by Pulse 99 Oximetry Medical Decision Making - Medical Decision Making The patient was evaluated by psychiatric service and will be discharged with a care plan. She does demonstrate evidence of situational depression. She states she will not hurt herself. - Lab Data Lab Results 05/24/20 05/24/20 05/24/20 Range/Units 16:05 16:05 16:05 Urine Color Yellow Urine Appearance Clear (Clear) Urine pH 6.5 (5.0-8.0) Ur Specific [place] 1.022 (1.001-1.035) Urine Protein Negative (Negative) Urine Glucose (UA) Negative (Negative) Urine Ketones Negative (Negative) Urine Blood Negative (Negative) Urine Nitrite Negative (Negative) Urine Bilirubin Negative (Negative) Urine Urobilinogen <2.0 (<2.0) mg/dL Ur Leukocyte Esterase Trace H (Negative) Urine RBC 1 (0-5) /hpf Urine WBC 2 (0-5) /hpf Ur Squamous Epith Cells 4 (0-4) /hpf Calcium Oxalate Crystal Occasional H (None) /hpf Urine Bacteria Occasional H (None) /hpf Urine Mucus Rare H (None) /hpf Urine HCG, Qual Detected (Not Detectd) Urine Opiates Screen Not Detected (NotDetected) Ur Oxycodone Screen Not Detected (NotDetected) Urine Methadone Screen Not Detected (NotDetected) Ur Propoxyphene Screen Not Detected (NotDetected) Ur Barbiturates Screen Not Detected (NotDetected) U Tricyclic Antidepress Not Detected (NotDetected) Ur Phencyclidine Scrn Not Detected (NotDetected) Ur Amphetamines Screen Not Detected (NotDetected) U Methamphetamines Scrn Not Detected (NotDetected) U Benzodiazepines Scrn Not Detected (NotDetected) Urine Cocaine Screen Not Detected (NotDetected) U Marijuana (THC) Screen Not Detected (NotDetected) Disposition Clinical Impression: Situational depression Disposition: HOME SELF-CARE Condition: Good Instructions (If sedation given, give patient instructions): Depression (ED), Suicide Prevention (ED) Is patient prescribed a controlled substance at d/c from ED?: No Referrals: Edgar Do MD [Primary Care Provider] - 1-2 days
[2020-05-24 16:27] LABS: Amphetamine Screen,Urine Not Detected (NotDetected); Barbiturate Screen,Urine Not Detected (NotDetected); Benzodiazepines Screen,Urine Not Detected (NotDetected); Cocaine Screen,Urine Not Detected (NotDetected); Methadone Screen, Urine Not Detected (NotDetected); Opiate Screen,Urine Not Detected (NotDetected); Oxycodone Screen, Urine Not Detected (NotDetected); Phencyclidine Screen,Urine Not Detected (NotDetected); Tricyclic Antidepressant,Urine Not Detected (NotDetected); Urn Cannabinoid Scrn Not Detected (NotDetected)
[2020-05-24 17:03] LABS: Appearance,Urine Clear (Clear); Bacteria,Urine Occasional /hpf; Bilirubin,Urine Negative (Negative); Blood,Urine Negative (Negative); Calcium Oxalate Crystals,Urine Occasional /hpf; Color,Urine Yellow; Glucose,Urine (UA) Negative (Negative); Ketones,Urine Negative (Negative); Leukocyte Esterase,Urine Trace (Negative); Mucus,Urine Rare /hpf; Nitrite,Urine Negative (Negative); PH, Urine 6.5 (5.0-8.0); Protein,Urine Negative (Negative); RBC,Urine 1 /hpf (0-5); Specific Gravity,Urine 1.022 (1.001-1.035); Squamous Epithelial Cell,Urine 4 /hpf (0-4); Urobilinogen,Urine <2.0 mg/dL (<2.0); WBC,Urine 2 /hpf (0-5)
[2020-05-24 19:12] VITALS: BP 126/82; PULSE 78; RESP 18; TEMP 98.7
== END 2020-05-24 19:12 | disposition home or self-care (01) ==
LOC: EC 15:38
DX: O99.342 Other mental disorders complicating pregnancy, second trimester (principal); O12.02 Gestational edema, second trimester; F43.21 Adjustment disorder with depressed mood; Z88.0 Allergy status to penicillin; Z91.013 Allergy to seafood; Z3A.25 25 weeks gestation of pregnancy; Z86.14 Personal history of Methicillin resistant Staphylococcus aureus infection
CPT/HCPCS: 80306; 81001; 81025; 82075; 99285

== ENCOUNTER 2020-06-01 13:54 | Emergency (ER) | payer OTHER ==
[2020-06-01 14:00] VITALS: BP 114/68; PULSE 97; RESP 18; TEMP 98.7
[2020-06-01 14:58] LABS: Appearance,Urine Clear (Clear); Bilirubin,Urine Negative (Negative); Blood,Urine Negative (Negative); Color,Urine Yellow; Glucose,Urine (UA) Negative (Negative); Ketones,Urine Negative (Negative); Leukocyte Esterase,Urine Negative (Negative); Nitrite,Urine Negative (Negative); Protein,Urine Negative (Negative); Specific Gravity,Urine 1.022 (1.001-1.035); Urobilinogen,Urine <2.0 mg/dL (<2.0)
--- NOTE | 2020-06-01 15:00 | ED ---
Female Urogenital HPI - General Chief complaint: Urogenital Stated complaint: here w/daughter wants covid screening Time Seen by Provider: 06/01/20 14:02 Source: patient Mode of arrival: ambulatory Limitations: no limitations - History of Present Illness Initial comments: Patient is a 34-year-old female presenting to the emergency Department with complaints of a vaginal odor that an ongoing for approximately 2-3 weeks. She states she thought she might have a yeast infection so has been using vaginal cream without improvement. She also admits that her has been cheating on her and is curious if she has any STDs. She is requesting treatment for all STDs. She denies any dysuria or increased frequency of urination. She states that she does notice an odor as well as some discharge described as "clear to whitish" which is making her wear a liner daily. She denies any vaginal itching. She denies any recent fever, chills. She has no further complaints at this time. Upon arrival to the ER, her vitals are stable. - Related Data Home Medications Medication Instructions Recorded Confirmed Acyclovir [Zovirax] 800 mg PO DAILY 12/20/16 06/01/20 Aqf-[id number]-[id number] Acid 1 cap PO DAILY 05/24/20 06/01/20 [-U Capsule (formulary)] Previous Rx's Medication Instructions Recorded metroNIDAZOLE [Flagyl] 500 mg PO BID 7 Days #14 tab 06/01/20 Allergies Allergy/AdvReac Type Severity Reaction Status Date / Time Penicillins Allergy Rash/Hives Verified 06/01/20 14:56 shellfish derived [Shellfish] Allergy Rash/Hives Verified 06/01/20 14:56 Review of Systems ROS Statement: Those systems with pertinent positive or pertinent negative responses have been documented in the HPI. ROS Other: All systems not noted in ROS Statement are negative. Past Medical History Past Medical History: No Reported History Additional Past Medical History / Comment(s): herpes History of Any Multi-Drug Resistant Organisms: None Reported, MRSA Date of last positivie culture/infection: 2012 MDRO Source:: right buttock Past Surgical History: Section Additional Past Surgical History / Comment(s): D&C, endoscopy Past Psychological History: Anxiety, Depression Smoking Status: Never smoker Past Alcohol Use History: None Reported Past Drug Use History: None Reported General Exam - General Exam Comments Initial Comments: GENERAL: Well-appearing, well-nourished and in no acute distress. HEAD: Atraumatic, normocephalic. EYES: Pupils equal round and reactive to light, extraocular movements intact, sclera anicteric, conjunctiva are normal. ENT: TMs normal, nares patent, oropharynx clear without exudates. Moist mucous membranes. NECK: Normal range of motion, supple without lymphadenopathy or JVD. LUNGS: Breath sounds clear to auscultation bilaterally and equal. No wheezes rales or rhonchi. HEART: Regular rate and rhythm without murmurs, rubs or gallops. ABDOMEN: Soft, nontender, normoactive bowel sounds. No guarding, no rebound. No masses appreciated. EXTREMITIES: Normal range of motion, no pitting or edema. No clubbing or cyanosis. NEUROLOGICAL: Normal speech, normal gait. PSYCH: Normal mood, normal affect. SKIN: Warm, Dry, normal turgor, no rashes or lesions noted. Limitations: no limitations External exam: Present: normal external exam Speculum exam: Present: vaginal discharge (Mild discharge present). Absent: cervical discharge, vaginal bleeding, foreign body By manual exam: Present: normal by manual exam Course Vital Signs 06/01/20 13:56 Temperature 98.7 F Pulse Rate 97 Respiratory 18 Rate Blood Pressure 114/68 O2 Sat by Pulse 96 Oximetry Medical Decision Making - Medical Decision Making Patient is a 34-year-old female here requesting treatment for possible STDs, vaginal odor. She is currently 26 weeks . Her vitals are stable, her exam is unremarkable except for some very mild vaginal discharge. Urine shows evidence of infection, no bacteria. Trichomonas is negative. Patient is still requesting treatment before her results are available. Gonorrhea, chlamydia, general culture are all still pending. Patient will be given Rocephin and azithromycin in the ER. I will also treat her for bacterial vaginosis and will send Flagyl to her pharmacy. Patient is in agreement with this plan of care. Patient will follow up with her MACHINE INKER if symptoms persist. She is stable for discharge. Return parameters were discussed with the patient she verbalized understanding. Case discussed with Dr. Schwarz. - Lab Data Lab Results 06/01/20 06/01/20 Range/Units 14:27 14:49 Urine Color Yellow Urine Appearance Clear (Clear) Urine pH 6.0 (5.0-8.0) Ur Specific [place] 1.022 (1.001-1.035) Urine Protein Negative (Negative) Urine Glucose (UA) Negative (Negative) Urine Ketones Negative (Negative) Urine Blood Negative (Negative) Urine Nitrite Negative (Negative) Urine Bilirubin Negative (Negative) Urine Urobilinogen <2.0 (<2.0) mg/dL Ur Leukocyte Esterase Negative (Negative) Trichomonas Ag (Rapid) Negative (Negative) Disposition Clinical Impression: Bacterial vaginosis Disposition: HOME SELF-CARE Condition: Stable Instructions (If sedation given, give patient instructions): Bacterial Vaginosis (ED) Additional Instructions: Please return to the Emergency Department if symptoms worsen or any other concerns. Take medication as prescribed, no alcohol with this medication. Follow-up with MACHINE INKER if symptoms persist. Prescriptions: metroNIDAZOLE [Flagyl] 500 mg PO BID 7 Days #14 tab Is patient prescribed a controlled substance at d/c from ED?: No Referrals: None,Stated [Primary Care Provider] - 1-2 days
[2020-06-01] MEDS ORDERED: cefTRIAXone 250 MG VIAL IM STA (15:15)
[2020-06-01] MEDS ORDERED: AZITHROMYCIN 250 MG TAB PO STA (15:15)
== END 2020-06-01 15:36 | disposition home or self-care (01) ==
LOC: EC 13:54
DX: O23.592 Infection of other part of genital tract in pregnancy, second trimester (principal); Z3A.26 26 weeks gestation of pregnancy; Z79.899 Other long term (current) drug therapy; Z88.0 Allergy status to penicillin; Z91.018 Allergy to other foods; Z86.19 Personal history of other infectious and parasitic diseases; Z86.14 Personal history of Methicillin resistant Staphylococcus aureus infection; Z98.890 Other specified postprocedural states
CPT/HCPCS: 81003; 87808; 87491; 87591; 87070; 99283; 96372; J0696

== ENCOUNTER 2020-07-03 16:03 | Emergency (ER) | payer OTHER ==
[2020-07-03 16:08] VITALS: TEMP 98.4
--- NOTE | 2020-07-03 16:31 | ED ---
SOB HPI - General Chief Complaint: Upper Respiratory Infection Stated Complaint: SOB Time Seen by Provider: 07/03/20 16:09 Source: patient, RN notes reviewed, old records reviewed Mode of arrival: ambulatory Limitations: no limitations - History of Present Illness Initial Comments: This is a 33-year-old female DF for evaluation of shortness of breath patient resents today for shortness of breath she is 31 weeks . No chest pain. No swelling of the lower extremities no pain in the legs. No recent sick contacts travel history or fever. No prior significant history of shortness of breath MD Complaint: shortness of breath -: days(s) Severity: mild Severity scale (1-10): 3 Quality: aching Consistency: constant Improves With: nothing Worsens With: nothing Known History Of: asthma Context: other () Associated Symptoms: cough Treatments Prior to Arrival: none - Related Data Home Medications Medication Instructions Recorded Confirmed Acyclovir [Zovirax] 800 mg PO DAILY 12/20/16 06/01/20 Sat-Daco-Kqlmf Acid 1 cap PO DAILY 05/24/20 06/01/20 [-U Capsule (formulary)] Previous Rx's Medication Instructions Recorded metroNIDAZOLE [Flagyl] 500 mg PO BID 7 Days #14 tab 06/01/20 Albuterol Sulfate [Proair Hfa] 1 - 2 puff INHALATION Q4H PRN #1 07/03/20 inhaler Azithromycin [Zithromax Z-pack] 0 mg PO DIRECTED #1 pack 07/03/20 Allergies Allergy/AdvReac Type Severity Reaction Status Date / Time Penicillins Allergy Rash/Hives Verified 07/03/20 16:10 shellfish derived [Shellfish] Allergy Rash/Hives Verified 07/03/20 16:10 Review of Systems ROS Statement: Those systems with pertinent positive or pertinent negative responses have been documented in the HPI. ROS Other: All systems not noted in ROS Statement are negative. Past Medical History Past Medical History: No Reported History Additional Past Medical History / Comment(s): herpes History of Any Multi-Drug Resistant Organisms: None Reported, MRSA Date of last positivie culture/infection: 2012 MDRO Source:: right buttock Past Surgical History: Section Additional Past Surgical History / Comment(s): D&C, endoscopy Past Psychological History: Anxiety, Depression Past Alcohol Use History: None Reported Past Drug Use History: None Reported General Exam Limitations: no limitations General appearance: alert, in no apparent distress Head exam: Present: atraumatic, normocephalic, normal inspection Eye exam: Present: normal appearance, PERRL, EOMI. Absent: scleral icterus, c onjunctival injection, periorbital swelling ENT exam: Present: normal exam, mucous membranes moist Neck exam: Present: normal inspection. Absent: tenderness, meningismus, lymphadenopathy Respiratory exam: Present: normal lung sounds bilaterally. Absent: respiratory distress, wheezes, rales, rhonchi, stridor Cardiovascular Exam: Present: regular rate, normal rhythm, normal heart sounds. Absent: systolic murmur, diastolic murmur, rubs, gallop, clicks GI/Abdominal exam: Present: soft, normal bowel sounds. Absent: distended, tenderness, guarding, rebound, rigid Extremities exam: Present: normal inspection, full ROM, normal capillary refill. Absent: tenderness, pedal edema, joint swelling, calf tenderness Back exam: Present: normal inspection Neurological exam: Present: alert, oriented X3, CN II-XII intact Psychiatric exam: Present: normal affect, normal mood Skin exam: Present: warm, dry, intact, normal color. Absent: rash Course Vital Signs 07/03/20 07/03/20 16:04 16:35 Temperature 98.4 F Pulse Rate 89 Respiratory 18 18 Rate Blood Pressure 133/85 O2 Sat by Pulse 98 Oximetry - Reevaluation(s) Reevaluation #1: 07/03/20 16:31 Medical records reviewed Reevaluation #2: 07/03/20 20:06 Patient informed results, questions answered no shortness of breath or distress Medical Decision Making - Medical Decision Making 24 female DF for evaluation patient with mild shortness of breath upper respiratory infection cough. Patient likely acute bronchitis no significant wheezing no shortness this of breath at rest, also is negative for DVT and p atient will continue outpatient evaluation - Lab Data Result diagrams: 07/03/20 17:01 07/03/20 17:01 Lab Results 07/03/20 07/03/20 07/03/20 Range/Units 17:01 17:01 17:01 WBC 12.3 H (3.8-10.6) k/uL RBC 4.39 (3.80-5.40) m/uL Hgb 12.3 (11.4-16.0) gm/dL Hct 37.4 (34.0-46.0) % MCV 85.3 (80.0-100.0) fL MCH 28.1 (25.0-35.0) pg MCHC 32.9 (31.0-37.0) g/dL RDW 15.4 (11.5-15.5) % Plt Count 164 (150-450) k/uL Neutrophils % 84 % Lymphocytes % 10 % Monocytes % 4 % Eosinophils % 2 % Basophils % 0 % Neutrophils # 10.3 H (1.3-7.7) k/uL Lymphocytes # 1.2 (1.0-4.8) k/uL Monocytes # 0.4 (0-1.0) k/uL Eosinophils # 0.3 (0-0.7) k/uL Basophils # 0.0 (0-0.2) k/uL Sodium 133 L (137-145) mmol/L Potassium 4.0 (3.5-5.1) mmol/L Chloride 109 H (98-107) mmol/L Carbon Dioxide 19 L (22-30) mmol/L Anion Gap 5 mmol/L BUN 5 L (7-17) mg/dL Creatinine 0.48 L (0.52-1.04) mg/dL Est GFR (CKD-EPI)AfAm >90 (>60 ml/min/1.73 sqM) Est GFR (CKD-EPI)NonAf >90 (>60 ml/min/1.73 sqM) Glucose 112 H (74-99) mg/dL Calcium 8.2 L (8.4-10.2) mg/dL Magnesium 1.8 (1.6-2.3) mg/dL Total Bilirubin 0.3 (0.2-1.3) mg/dL AST 19 (14-36) U/L ALT 11 (4-34) U/L Alkaline Phosphatase 76 (38-126) U/L Creatine Kinase 48 (30-135) U/L CK-MB (CK-2) 0.6 (0.0-2.4) ng/mL Troponin I <0.012 (0.000-0.034) ng/mL NT-Pro-B Natriuret Pep pg/mL Total Protein 5.6 L (6.3-8.2) g/dL Albumin 2.8 L (3.5-5.0) g/dL 07/03/20 Range/Units 17:01 WBC (3.8-10.6) k/uL RBC (3.80-5.40) m/uL Hgb (11.4-16.0) gm/dL Hct (34.0-46.0) % MCV (80.0-100.0) fL MCH (25.0-35.0) pg MCHC (31.0-37.0) g/dL RDW (11.5-15.5) % Plt Count (150-450) k/uL Neutrophils % % Lymphocytes % % Monocytes % % Eosinophils % % Basophils % % Neutrophils # (1.3-7.7) k/uL Lymphocytes # (1.0-4.8) k/uL Monocytes # (0-1.0) k/uL Eosinophils # (0-0.7) k/uL Basophils # (0-0.2) k/uL Sodium (137-145) mmol/L Potassium (3.5-5.1) mmol/L Chloride (98-107) mmol/L Carbon Dioxide (22-30) mmol/L Anion Gap mmol/L BUN (7-17) mg/dL Creatinine (0.52-1.04) mg/dL Est GFR (CKD-EPI)AfAm (>60 ml/min/1.73 sqM) Est GFR (CKD-EPI)NonAf (>60 ml/min/1.73 sqM) Glucose (74-99) mg/dL Calcium (8.4-10.2) mg/dL Magnesium (1.6-2.3) mg/dL Total Bilirubin (0.2-1.3) mg/dL AST (14-36) U/L ALT (4-34) U/L Alkaline Phosphatase (38-126) U/L Creatine Kinase (30-135) U/L CK-MB (CK-2) (0.0-2.4) ng/mL Troponin I (0.000-0.034) ng/mL NT-Pro-B Natriuret Pep 60 pg/mL Total Protein (6.3-8.2) g/dL Albumin (3.5-5.0) g/dL - EKG Data -: EKG Interpreted by Me (EKG shows sinus rhythm 85 MS 125 QRS 94 QTC 418) - Radiology Data Radiology results: report reviewed (Chest x-rays negative for acute disease), im age reviewed Disposition Clinical Impression: Asthmatic bronchitis, Bronchitis Disposition: HOME SELF-CARE Condition: Good Instructions (If sedation given, give patient instructions): Acute Bronchitis (ED) Prescriptions: Albuterol Sulfate [Proair Hfa] 1 - 2 puff INHALATION Q4H PRN #1 inhaler PRN Reason: Shortness Of Breath Azithromycin [Zithromax Z-pack] 0 mg PO DIRECTED #1 pack Is patient prescribed a controlled substance at d/c from ED?: No Referrals: Edgar Do MD [Primary Care Provider] - 1-2 days
[2020-07-03 17:18] LABS: Basophils % (A) 0 %; Eosinophils # (A) 0.3 k/uL (0-0.7); Eosinophils % (A) 2 %; HCT 37.4 % (34.0-46.0); HGB 12.3 gm/dL (11.4-16.0); Lymphocytes # (A) 1.2 k/uL (1.0-4.8); Lymphocytes % (A) 10 %; MCH 28.1 pg (25.0-35.0); MCHC 32.9 g/dL (31.0-37.0); MCV 85.3 fL (80.0-100.0); Mean Platelet Volume 8.6; Monocytes # (A) 0.4 k/uL (0-1.0); Monocytes % (A) 4 %; Neutrophils # (A) 10.3 k/uL (1.3-7.7); Neutrophils % (A) 84 %; Platelet Count 164 k/uL (150-450); RBC 4.39 m/uL (3.80-5.40); RDW 15.4 % (11.5-15.5); WBC 12.3 k/uL (3.8-10.6)
[2020-07-03 17:30] LABS: ALT 11 U/L (4-34); AST 19 U/L (14-36); African American GFR (CKD) >90 (>60 ml/min/1.73 sqM); Albumin 2.8 g/dL (3.5-5.0); Alkaline Phosphatase 76 U/L (38-126); Anion Gap 5 mmol/L; Blood Urea Nitrogen 5 mg/dL (7-17); Calcium 8.2 mg/dL (8.4-10.2); Carbon Dioxide 19 mmol/L (22-30); Chloride 109 mmol/L (98-107); Creatine Kinase 48 U/L (30-135); Glucose 112 mg/dL (74-99); Magnesium 1.8 mg/dL (1.6-2.3); Non-African American GFR(CKD) >90 (>60 ml/min/1.73 sqM); Sodium 133 mmol/L (137-145); Total Bilirubin 0.3 mg/dL (0.2-1.3); Total Protein 5.6 g/dL (6.3-8.2)
--- NOTE | 2020-07-03 17:44 | XR ---
EXAMINATION TYPE: XR chest 2V DATE OF EXAM: 07/03/2020 COMPARISON: Prior chest x-ray 11/13/2016 HISTORY: Difficulty breathing TECHNIQUE: Frontal and lateral views of the chest are obtained. FINDINGS: There is no focal air space opacity, pleural effusion, or pneumothorax seen. The cardiac silhouette size is within normal limits. The osseous structures are intact. IMPRESSION: No acute cardiopulmonary process.
[2020-07-03 17:52] LABS: Creatine Kinase MB 0.6 ng/mL (0.0-2.4); Troponin I <0.012 ng/mL (0.000-0.034)
--- NOTE | 2020-07-03 19:43 | US ---
EXAMINATION TYPE: US venous doppler duplex LE DATE OF EXAM: 07/03/2020 7:09 PM COMPARISON: NONE CLINICAL HISTORY: dvt. R/O DVT. Swelling in legs. Pt is SOB. Pt is 31 weeks . No hx of DVT. P atient does not take blood thinners. SIDE PERFORMED: Bilateral TECHNIQUE: The lower extremity deep venous system is examined utilizing real time linear array sonog rolf with graded compression, doppler sonography and color-flow sonography. VESSELS IMAGED: External Iliac Vein (EIV) Common Femoral Vein Deep Femoral Vein Greater Saphenous Vein * Femoral Vein Popliteal Vein Small Saphenous Vein * Proximal Calf Veins (* superficial vessels) Slightly limited with color artifact due to edema. The left and right common femoral, superficial fem oral, popliteal veins all compress normally and show no abnormal luminal echoes. There are normal vas cular waveforms. Right Leg: No evidence of DVT in veins imaged at this time from prox calf veins to EIV. Left Leg: No evidence of DVT in veins imaged at this time from prox calf veins to EIV. IMPRESSION: No evident deep venous thrombosis at or above the knees.
[2020-07-03 20:19] VITALS: BP 129/79; PULSE 88; RESP 20
== END 2020-07-03 20:20 | disposition home or self-care (01) ==
LOC: EC 16:03
DX: O99.513 Diseases of the respiratory system complicating pregnancy, third trimester (principal); J45.909 Unspecified asthma, uncomplicated; Z3A.31 31 weeks gestation of pregnancy; Z88.0 Allergy status to penicillin; Z91.013 Allergy to seafood
CPT/HCPCS: 36415; 71046; 80053; 82550; 82553; 83735; 83880; 84484; 85025; 93005; 93970; 99285

== ENCOUNTER 2020-07-18 09:42 | Outpatient (CLI) | payer OTHER ==
[2020-07-18 11:37] VITALS: BP 120/66; PULSE 74; RESP 18; TEMP 97.5
--- NOTE | 2020-08-21 09:41 | P.MSEPDOC ---
Presenting Problems - Arrival Data Date of Arrival on Unit: 07/18/20 Time of Arrival on Unit: 09:42 Mode of Transport: Ambulatory - Complaint OB-Reason for Admission/Chief Complaint: Pain Comment: low back pain, cramping, groin pain Medical History - Information : 4 Para: 2 Term: 2 : 0 Abortions: Spontaneous or Elective: 1 Number of Living Children: 2 - Gestational Age Gestational Age by WENDY (wks/days): 33 Weeks and 2 Days - History Complications: Prior Review of Systems - Review of Systems Constitutional: No problems Breast: No problems ENT: No problems Cardiovascular: No problems Respiratory: No problems Gastrointestinal: No problems Genitourinary: No problems Musculoskeletal: No problems Neurological: No problems Skin: No problems Vital Signs - Temperature Temperature: 97.5 F Temperature Source: Temporal Artery Scan - Pulse Right Brachial Pulse Rate: 74 Pulse Assessment Method: Automatic Cuff - Respirations Respiratory Rate: 18 Oxygen Delivery Method: Room Air O2 Sat by Pulse Oximetry: 99 - Blood Pressure Right Arm Blood Pressure: 120/66 Blood Pressure Mean: 84 Blood Pressure Source: Automatic Cuff Medical Screen Scoring (Pre) - Cervical Exam Dilation: Exam Deferred Effacement: Exam Deferred Membranes: Intact - Uterine Contractions Frequency: N/A Duration: N/A Intensity: N/A - Maternal Vital Signs Maternal Temperature: N/A Maternal Blood Pressure: N/A Maternal Respirations: N/A - Maternal Trauma Maternal Trauma: N/A - Assessment - Baby A Baseline FHR: 135 Heart Rate - NICHD Category: Category I (Normal) = 0 NST: Reactive Position: N/A Station: N/A - Total Score - Baby A Total Score - Baby A: 0 - Total Score - Baby B Total Score - Baby B: 0 - Total Score - Baby C Total Score - Baby C: 0 - Level of Risk - Baby A Level of Risk - Baby A: Low (0-5) - Level of Risk - Baby B Level of Risk - Baby B: Low (0-5) - Level of Risk - Baby C Level of Risk - Baby C: Low (0-5) Physician Notification (Pre) - Physician Notified Physician Notified Date: 07/18/20 Physician Notified Time: 10:40 New Order Received: Yes - Notification Comment Comment: discharged pt home, reactive nst, amniosure negative, cervix closed/ thick/high Disposition - Disposition OB Disposition: Triage, Discharge to home, Written follow up instructions reviewed Discharge Date: 07/18/20 Discharge Time: 10:45 I agree with the RN Medical Screening Exam: Yes Risk & Benefit of care provided described in d/c instruction: Yes Diagnosis: FALSE LABOR BEFORE 37 COMPLETED WEEKS OF GEST, THIRD TRI
== END 2020-07-18 10:45 | disposition home or self-care (01) ==
LOC: FBPOP 09:42
PROVIDERS: ATTEND Obstetrics & Gynecology
DX: O47.03 False labor before 37 completed weeks of gestation, third trimester (principal); Z3A.33 33 weeks gestation of pregnancy
CPT/HCPCS: 59025; 84112; G0463; 99213

== ENCOUNTER 2021-09-20 08:36 | Emergency (ER) | payer OTHER ==
[2021-09-20 08:40] VITALS: BP 136/90; PULSE 77; RESP 18; TEMP 97.8
[2021-09-20] MEDS ORDERED: cefTRIAXone 500 MG VIAL IM STA (08:51)
[2021-09-20] MEDS ORDERED: metroNIDAZOLE 500 MG TAB PO STA (09:02)
[2021-09-20] MEDS ORDERED: AZITHROMYCIN 250 MG TAB PO STA (09:04)
--- NOTE | 2021-09-20 09:24 | ED ---
Female Urogenital HPI - General Chief complaint: Urogenital Stated complaint: STD check Time Seen by Provider: 09/20/21 08:50 Source: patient, RN notes reviewed Mode of arrival: ambulatory Limitations: no limitations - History of Present Illness Initial comments: Patient is a 36-year-old female that presents to the emergency Department complaining of vaginal discharge is yellow for the past 5 days. She notes that this is not the first time she's expresses and last time was an STD. She notes that her has been up to no good. She notes that she just wants antibiotics. She denied any other issues or complaints. She was otherwise well-appearing. She denied chest pain shortness of breath headache nausea vomiting diarrhea constipation fever fatigue chills. Last Menstrual Period: 09/16/21 - Related Data Home Medications Medication Instructions Recorded Confirmed Acyclovir [Zovirax] 800 mg PO DAILY 12/20/16 07/18/20 Pdi-Ttyo-Zisie Acid 1 cap PO DAILY 05/24/20 07/18/20 [-U Capsule (formulary)] Allergies Allergy/AdvReac Type Severity Reaction Status Date / Time Penicillins Allergy Rash/Hives Verified 09/20/21 08:40 shellfish derived [Shellfish] Allergy Rash/Hives Verified 09/20/21 08:40 Review of Systems ROS Statement: Those systems with pertinent positive or pertinent negative responses have been documented in the HPI. ROS Other: All systems not noted in ROS Statement are negative. Past Medical History Past Medical History: No Reported History Additional Past Medical History / Comment(s): herpes History of Any Multi-Drug Resistant Organisms: None Reported, MRSA Date of last positivie culture/infection: 2012 MDRO Source:: right buttock Past Surgical History: Section Additional Past Surgical History / Comment(s): D&C, endoscopy Past Psychological History: Anxiety, Depression Smoking Status: Never smoker Past Alcohol Use History: Occasional General Exam Limitations: no limitations General appearance: alert, in no apparent distress Head exam: Present: atraumatic, normocephalic, normal inspection Eye exam: Present: normal appearance, PERRL, EOMI. Absent: scleral icterus, conjunctival injection, periorbital swelling ENT exam: Present: normal exam, mucous membranes moist Neck exam: Present: normal inspection Respiratory exam: Present: normal lung sounds bilaterally. Absent: respiratory distress, wheezes, rales, rhonchi, stridor Cardiovascular Exam: Present: regular rate, normal rhythm, normal heart sounds. Absent: systolic murmur, diastolic murmur, rubs, gallop, clicks GI/Abdominal exam: Present: soft, normal bowel sounds. Absent: distended, tenderness, guarding, rebound, rigid Rectal exam: Present: deferred Extremities exam: Present: normal inspection, full ROM, normal capillary refill. Absent: tenderness, pedal edema, joint swelling, calf tenderness Neurological exam: Present: alert, oriented X3 Psychiatric exam: Present: normal affect, normal mood Skin exam: Present: warm, dry, intact, normal color. Absent: rash Course Vital Signs 09/20/21 08:36 Temperature 97.8 F Pulse Rate 77 Respiratory 18 Rate Blood Pressure 136/90 O2 Sat by Pulse 98 Oximetry Medical Decision Making - Medical Decision Making 36-year-old female with yellow-green vaginal discharge 5 days wanting antibiotics for STD. Patient deferred testing states that last time this happened it wasn't STD here antibiotics and it took care of him. 500 mg of Rocephin, 2 g of metronidazole 1 g of azithromycin ordered. Case discussed with Dr. Schwarz, patient discharge home with follow-up with primary care. Disposition Clinical Impression: Sexually transmitted disease Disposition: HOME SELF-CARE Condition: Stable Instructions (If sedation given, give patient instructions): Sexually Transmitted Diseases (ED) Additional Instructions: Please return to the ED if symptoms persist or worsen. follow up with primary care in 1-2 days no sexual activity for 2 weeks. Is patient prescribed a controlled substance at d/c from ED?: No Referrals: Edgar Do MD [Primary Care Provider] - 1-2 days Time of Disposition: 09:24
== END 2021-09-20 10:00 | disposition home or self-care (01) ==
LOC: EC 08:36
DX: A64 Unspecified sexually transmitted disease (principal); F41.9 Anxiety disorder, unspecified; F32.9 Major depressive disorder, single episode, unspecified; Z88.0 Allergy status to penicillin
CPT/HCPCS: 99283; 96372; J0696

== ENCOUNTER 2021-09-28 20:47 | Emergency (ER) | payer OTHER ==
[2021-09-28 21:17] VITALS: BP 114/70; PULSE 77; RESP 20; TEMP 98.7
--- NOTE | 2021-09-28 21:59 | ED ---
Eye Problem HPI - General Chief complaint: Eye Problems Stated complaint: Poss [place] [facility] Time Seen by Provider: 09/28/21 21:19 Source: patient, RN notes reviewed Mode of arrival: ambulatory Limitations: no limitations - History of Present Illness Initial comments: Patient is a 36-year-old female that presents to the emergency room complaining of left eye irritation and clear discharge. Patient notes that she has had pinkeye in the past and this feels very similar. She is requesting eyedrops at this time. She was otherwise well-appearing. She denied any issues or complaints. She denied chest pain first breath headache nausea vomiting diarrhea constipation fever fatigue chills. - Related Data Home Medications Medication Instructions Recorded Confirmed Acyclovir [Zovirax] 800 mg PO DAILY 12/20/16 07/18/20 Rsl-Bvat-Ijnkk Acid 1 cap PO DAILY 05/24/20 07/18/20 [-U Capsule (formulary)] Allergies Allergy/AdvReac Type Severity Reaction Status Date / Time Penicillins Allergy Rash/Hives Verified 09/28/21 21:17 shellfish derived [Shellfish] Allergy Rash/Hives Verified 09/28/21 21:17 Review of Systems ROS Statement: Those systems with pertinent positive or pertinent negative responses have been documented in the HPI. ROS Other: All systems not noted in ROS Statement are negative. Past Medical History Past Medical History: No Reported History Additional Past Medical History / Comment(s): herpes History of Any Multi-Drug Resistant Organisms: None Reported, MRSA Date of last positivie culture/infection: 2012 MDRO Source:: right buttock Past Surgical History: Section Additional Past Surgical History / Comment(s): D&C, endoscopy Past Psychological History: Anxiety, Depression Smoking Status: Never smoker Past Alcohol Use History: Occasional General Exam Limitations: no limitations General appearance: alert, in no apparent distress Head exam: Present: atraumatic, normocephalic, normal inspection Eye exam: Present: normal appearance, PERRL, EOMI, other (Minimal erythema left eye, no drainage noted.). Absent: scleral icterus, conjunctival injection, periorbital swelling ENT exam: Present: normal exam, mucous membranes moist Neck exam: Present: normal inspection Respiratory exam: Present: normal lung sounds bilaterally. Absent: respiratory distress, wheezes, rales, rhonchi, stridor Cardiovascular Exam: Present: regular rate, normal rhythm, normal heart sounds. Absent: systolic murmur, diastolic murmur, rubs, gallop, clicks Extremities exam: Present: normal inspection, full ROM, normal capillary refill. Absent: tenderness, pedal edema, joint swelling, calf tenderness Neurological exam: Present: alert, oriented X3 Psychiatric exam: Present: normal affect, normal mood Skin exam: Present: warm, dry, intact, normal color. Absent: rash Course Vital Signs 09/28/21 21:10 Temperature 98.7 F Pulse Rate 77 Respiratory 20 Rate Blood Pressure 114/70 O2 Sat by Pulse 99 Oximetry Medical Decision Making - Medical Decision Making 36-year-old female complaining of left eye irritation. Requesting eyedrops. Upon physical exam left eye does appear to be mildly erythematous. Patient is very will discharge home with antibiotic drops. Case discussed with Dr. lopez patient discharge home. Disposition Clinical Impression: Conjunctivitis Disposition: HOME SELF-CARE Condition: Stable Instructions (If sedation given, give patient instructions): Conjunctivitis (ED) Additional Instructions: Please return to the Emergency Department if symptoms worsen or any other concerns. Follow-up with primary care 1-2 days. Take antibiotic drops as prescribed. Is patient prescribed a controlled substance at d/c from ED?: No Referrals: Edgar Do MD [Primary Care Provider] - 1-2 days Time of Disposition: 21:59
[2021-09-29] MEDS ORDERED: POLYMYXIN B-TRIMETHOPRIM SULF (10,000-1) OPHTH DROPS 10 ML BTL BOTH EYES SCH
== END 2021-09-28 22:08 | disposition home or self-care (01) ==
LOC: EC 20:47
DX: H10.9 Unspecified conjunctivitis (principal); Z88.0 Allergy status to penicillin; Z91.013 Allergy to seafood
CPT/HCPCS: 99283

== ENCOUNTER → 2022-02-11 | Outpatient (CLI) | payer OTHER ==
--- NOTE | 2022-02-11 20:23 | CT ---
EXAMINATION TYPE: CT sinus wo con DATE OF EXAM: 02/11/2022 COMPARISON: NONE HISTORY: CHRONIC SINUSITIS CT DLP: 396 mGycm. Automated Exposure Control for Dose Reduction was Utilized. TECHNIQUE: CT scan of the sinuses is performed without contrast, axial images are obtained, coronal r eformatted images are also reviewed. FINDINGS: Small amount of patchy fluid inferiorly in the right maxillary sinus otherwise paranasal si nuses are clear. The ostiomeatal complex is patent bilaterally on the coronal images. Nasal septum i s deviated to right of midline. Visualized portion of mastoid air cells show no abnormal opacification. The globes are intact bilate rally. Visualized brain parenchyma is within normal limits. IMPRESSION: Focal mild acute sinusitis inferior right maxillary sinus.
== END | disposition home or self-care (01) ==
LOC: RADCTMAIN 17:00
PROVIDERS: ATTEND Otolaryngology Facial Plastic Surgery
DX: J01.00 Acute maxillary sinusitis, unspecified (principal)
CPT/HCPCS: 70486

== ENCOUNTER 2023-09-14 17:31 | Emergency (ER) | payer OTHER ==
[2023-09-14 17:51] VITALS: TEMP 98.2
[2023-09-14] MEDS ORDERED: KETOROLAC 15 MG/ML 1 ML VIAL IVP STA (18:18)
--- NOTE | 2023-09-14 18:20 | ED ---
Chest Pain HPI - General Chief Complaint: Chest Pain Stated Complaint: KEVIN, Chest Pain, Left arm pain Time Seen by Provider: 09/14/23 17:45 Source: patient Mode of arrival: ambulatory Limitations: no limitations - History of Present Illness Initial Comments: This patient is a 37 year old woman who complains of having pain that started around noon in the left chest radiating to neck and back. She states that it is an aching pain gets worse if she takes a deep breath or sometimes with movement. She is remaining still and taking shallow breaths there is really no pain. She did not have any injury. She has no accompanying symptoms, no fever or chills. No cough or dyspnea. No nausea or vomiting. No diaphoresis, palpitations, lightheadedness or syncope. MD Complaint: chest pain Onset/Timin -: hour(s) Onset: during rest Pain Location: left chest Pain Radiation: back, neck Severity: moderate Quality: aching Consistency: intermittent Improves With: remaining still Worsens With: inspiration, movement Context: recent illness Treatments Prior to Arrival: none - Related Data Home Medications Medication Instructions Recorded Confirmed Acyclovir [Zovirax] 800 mg PO DAILY 12/20/16 07/18/20 Egr-Sacg-[id number] Acid 1 cap PO DAILY 05/24/20 07/18/20 [-U Capsule (formulary)] Previous Rx's Medication Instructions Recorded Ibuprofen [Motrin] 600 mg PO Q8HR PRN #20 tab 09/14/23 Allergies Allergy/AdvReac Type Severity Reaction Status Date / Time Penicillins Allergy Rash/Hives Verified 09/14/23 17:40 shellfish derived [Shellfish] Allergy Rash/Hives Verified 09/14/23 17:40 Review of Systems ROS Statement: Those systems with pertinent positive or pertinent negative responses have been documented in the HPI. ROS Other: All systems not noted in ROS Statement are negative. Constitutional: Denies: fever, chills Respiratory: Denies: cough, dyspnea Cardiovascular: Reports: chest pain. Denies: palpitations, dyspnea on exertion, edema, syncope Gastrointestinal: Denies: abdominal pain, nausea, vomiting, diarrhea Genitourinary: Denies: dysuria, hematuria Musculoskeletal: Denies: back pain Skin: Denies: rash Neurological: Denies: headache, weakness, numbness EKG Findings - EKG Results: EKG: interpreted by ERMD, WNL, sinus rhythm (With sinus arrhythmia, rate 69 bpm), normal axis, normal QRS, normal ST/T - ND, Pacemaker, Normal: Normal tracing: normal tracing Past Medical History Past Medical History: No Reported History Additional Past Medical History / Comment(s): herpes History of Any Multi-Drug Resistant Organisms: None Reported, MRSA Date of last positivie culture/infection: 2012 MDRO Source:: right buttock Past Surgical History: Section Additional Past Surgical History / Comment(s): D&C, endoscopy Past Psychological History: Anxiety, Depression Smoking Status: Never smoker Past Alcohol Use History: Occasional Past Drug Use History: None Reported General Exam Limitations: no limitations General appearance: alert, in no apparent distress Head exam: Present: atraumatic, normocephalic Eye exam: Present: normal appearance. Absent: scleral icterus, conjunctival injection Neck exam: Present: normal inspection Respiratory exam: Present: normal lung sounds bilaterally. Absent: respiratory distress, wheezes, rales, rhonchi, stridor, chest wall tenderness, accessory muscle use Cardiovascular Exam: Present: regular rate, normal rhythm, normal heart sounds. Absent: systolic murmur, diastolic murmur, rubs, gallop GI/Abdominal exam: Present: soft. Absent: distended, tenderness, guarding, rebound, rigid, mass Extremities exam: Present: normal inspection, normal capillary refill. Absent: pedal edema, calf tenderness Back exam: Present: normal inspection. Absent: CVA tenderness (R), CVA tenderness (L) Neurological exam: Present: alert Skin exam: Present: warm, dry, intact, normal color. Absent: rash Course Vital Signs 09/14/23 09/14/23 09/14/23 17:37 19:30 20:13 Temperature 98.2 F Pulse Rate 69 69 73 Respiratory 18 16 Rate Blood Pressure 119/82 108/84 O2 Sat by Pulse 100 99 Oximetry 09/14/23 09/14/23 21:27 21:52 Temperature Pulse Rate 71 67 Respiratory 16 16 Rate Blood Pressure 108/84 125/88 O2 Sat by Pulse 98 97 Oximetry Chest Pain MDM - MDM The patient had chest x-ray which I interpreted as negative for acute infiltrate, pneumothorax, congestive heart failure Was pt. sent in by a medical professional or institution (, PA, PLANT BUYER, urgent care, hospital, or assisted...) When possible be specific @ -[No] Did you speak to anyone other than the patient for history (EMS, parent, family, police, friend...)? What history was obtained from this source @ -[No] Did you review nursing and triage notes (agree or disagree)? Why? @ -[I reviewed and agree with nursing and triage notes] Were old charts reviewed (outside hosp., previous admission, EMS record, old EKG, old radiological studies, urgent care reports/EKG's, assisted records)? Report findings @ -[No old charts were reviewed] Differential Diagnosis (chest pain, altered mental status, abdominal pain women, abdominal pain men, vaginal bleeding, weakness, fever, dyspnea, syncope, headache, dizziness, GI bleed, back pain, seizure, CVA, palpatations, mental health, musculoskeletal)? @ -[Differential Chest Pain: Stable Angina, Unstable Angina, STEMI, NSTEMI Aortic Dissection, Pneumothorax, Musculoskeletal, Esophageal Spasm GERD, Cholecystitis, Pancreatitis, Zoster, this is not meant to be an all-inclusive list. EKG interpreted by me (3pts min.). @ -[I interpreted As above] X-rays interpreted by me (1pt min.). @ -[I interpreted as above CT interpreted by me (1pt min.). @ -[None done] U/S interpreted by me (1pt. min.). @ -[None done] What testing was considered but not performed or refused? (CT, X-rays, U/S, labs)? Why? @ -[None] What meds were considered but not given or refused? Why? @ -[None] Did you discuss the management of the patient with other professionals (kiersten forbes i.eMonik Pak, PA, PLANT BUYER, lab, RT, psych nurse, social economist, manual tester, teacher, security flex officer, director of casework services)? Give summary @ -[No] Was smoking cessation discussed for >3mins.? @ -[No] Was critical care preformed (if so, how long)? @ -[No] Were there social determinants of health that impacted care today? How? (Homelessness, low income, unemployed, alcoholism, drug addiction, transportation, low edu. Level, literacy, decrease access to med. care, skilled nursing, rehab)? @ -[No] Was there de-escalation of care discussed even if they declined (Discuss DNR or withdrawal of care, Hospice)? DNR status @ -[No] What co-morbidities impacted this encounter? (DM, HTN, Smoking, COPD, CAD, Cancer, CVA, ARF, Chemo, Hep., AIDS, mental health diagnosis, sleep apnea, morbid obesity)? @ -[None] Was patient admitted / discharged? Hospital course, mention meds given and route, prescriptions, significant lab abnormalities, going to OR and other pertinent info. @ -[Patient is 37-year-old woman here with pleuritic chest pain. The workup did reveal mild elevation of amylase lipase, and therefore the patient had ultrasound of the upper abdomen interpreted by radiology to not show acute biliary disease. Discussed the findings with the patient was feeling better following her course here. We discussed appropriate further care and follow-up as well as return parameters. Undiagnosed new problem with uncertain prognosis? @ -[No] Drug Therapy requiring intensive monitoring for toxicity (Heparin, Nitro, Insuli n, Cardizem)? @ -[No] Were any procedures done? @ -[No] Diagnosis/symptom? @ -Acute pleuritic chest pain Possible mild pancreatitis, acute Acute, or Chronic, or Acute on Chronic? @ -[default] Uncomplicated (without systemic symptoms) or Complicated (systemic symptoms)? @ -[Uncomplicated Side effects of treatment? @ -[No] Exacerbation, Progression, or Severe Exacerbation? @ -[No] Poses a threat to life or bodily function? How? (Chest pain, USA, [place], pneumonia, PE, COPD, DKA, ARF, appy, cholecystitis, CVA, Diverticulitis, Homicidal, Suicidal, threat to staff... and all critical care pts) @ -[No] Disposition Clinical Impression: Pleuritic chest pain Disposition: HOME SELF-CARE Condition: Good Instructions (If sedation given, give patient instructions): Pleurisy (DC) Prescriptions: Ibuprofen [Motrin] 600 mg PO Q8HR PRN #20 tab PRN Reason: Pain Is patient prescribed a controlled substance at d/c from ED?: No Referrals: Edgar Do MD [Primary Care Provider] - 1-2 days
--- NOTE | 2023-09-14 18:48 | XR ---
EXAMINATION TYPE: XR chest 2V DATE OF EXAM: 09/14/2023 COMPARISON: 10/12/2020 INDICATION: Chest pain, short of breath TECHNIQUE: Frontal and lateral views of the chest are obtained. FINDINGS: The heart size is normal. The pulmonary vasculature is normal. The lungs are clear. IMPRESSION: 1. No acute pulmonary process.
[2023-09-14 19:02] LABS: Basophils % (A) 0 %; Eosinophils # (A) 0.2 k/uL (0-0.7); Eosinophils % (A) 2 %; HCT 42.3 % (34.0-46.0); HGB 14.4 gm/dL (11.4-16.0); Lymphocytes # (A) 2.9 k/uL (1.0-4.8); Lymphocytes % (A) 32 %; MCH 28.7 pg (25.0-35.0); MCV 84.3 fL (80.0-100.0); Mean Platelet Volume 8.3; Monocytes # (A) 0.5 k/uL (0-1.0); Monocytes % (A) 5 %; Neutrophils # (A) 5.4 k/uL (1.3-7.7); Neutrophils % (A) 59 %; Platelet Count 306 k/uL (150-450); RBC 5.02 m/uL (3.80-5.40); RDW 13.7 % (11.5-15.5); WBC 9.1 k/uL (3.8-10.6)
[2023-09-14 19:18] LABS: ALT 17 U/L (4-34); AST 21 U/L (14-36); African American GFR (CKD) >90 (>60 ml/min/1.73 sqM); Albumin 4.6 g/dL (3.5-5.0); Alkaline Phosphatase 88 U/L (38-126); Amylase 112 U/L (30-110); Anion Gap 13 mmol/L; Blood Urea Nitrogen 15 mg/dL (7-17); Calcium 9.8 mg/dL (8.4-10.2); Carbon Dioxide 23 mmol/L (22-30); Chloride 103 mmol/L (98-107); Glucose 83 mg/dL (74-99); Lipase 511 U/L (23-300); Magnesium 2.1 mg/dL (1.6-2.3); Non-African American GFR(CKD) >90 (>60 ml/min/1.73 sqM); Potassium 4.4 mmol/L (3.5-5.1); Sodium 139 mmol/L (137-145); Total Bilirubin 0.3 mg/dL (0.2-1.3); Total Protein 7.7 g/dL (6.3-8.2)
[2023-09-14 19:39] VITALS: RESP 16
[2023-09-14 19:42] LABS: INR 0.9 (<1.2); Partial Thromboplastin Time 27.7 sec (22.0-30.0); Prothrombin Time 10.3 sec (10.0-12.5)
--- NOTE | 2023-09-14 21:25 | US ---
EXAMINATION TYPE: US abdomen limited DATE OF EXAM: 09/14/2023 COMPARISON: NONE CLINICAL INDICATION: Female, 37 years old with history of attention RUQ; Chest pain. Pt is not NPO. *Pt could not hold breath for long due to chest pain TECHNIQUE: Multiple sonographic images of the right upper quadrant are obtained. FINDINGS: EXAM MEASUREMENTS: Liver Length: 15.2 cm Gallbladder Wall: 0.28 cm CBD: 0.48 cm Right Kidney: 10.7 x 6.2 x 4.9 cm STRAIGHT KNIFE CUTTER MACHINE NOTES: Pancreas: Parts seen appear wnl Liver: Heterogeneous. No obvious masses seen Gallbladder: Contracted, appears wnl Evidence for sonographic Jo's sign: No CBD: wnl Right Kidney: wnl IMPRESSION: . 1. Heterogenous appearance of the liver parenchyma without suspicious observation 2. Contracted gallbladder with no evidence of acute cholecystitis.
[2023-09-14 22:03] VITALS: BP 125/88; PULSE 67
== END 2023-09-14 21:53 | disposition home or self-care (01) ==
LOC: EC 17:31
DX: R09.1 Pleurisy (principal); Z86.59 Personal history of other mental and behavioral disorders; Z88.0 Allergy status to penicillin; Z91.013 Allergy to seafood
CPT/HCPCS: 36415; 93005; 85379; 80053; 82150; 83690; 83735; 84484; 85025; 85610; 85730; 71046; 76705; 99285; 96374; J1885

== ENCOUNTER 2024-01-28 09:56 | Emergency (ER) | payer OTHER ==
[2024-01-28] MEDS: SODIUM CHLORIDE 0.9% 1,000 ML IV STA (10:19)
--- NOTE | 2024-01-28 10:31 | ED ---
Nausea/Vomiting/Diarrhea HPI - General Chief complaint: Nausea/Vomiting/Diarrhea Stated complaint: diarrhea Time Seen by Provider: 01/28/24 10:29 Source: patient, RN notes reviewed Mode of arrival: ambulatory Limitations: no limitations - History of Present Illness Initial comments: Patient is a 38-year-old female presented to ER with chief complaint of nausea, vomiting and diarrhea. Patient states she was on Wegovy about 3 months ago and stopped. She said she restarted Wegovy 1 mg 3 days ago. She states since taking the new dose she has been experiencing nausea and vomiting. She has been unable to keep anything down. She also was endorsing diarrhea. Denies any blood in her stool. She states that she feels weak and tired. Denies any fever s, chills, night sweats. She is also reporting generalized abdominal pain. She has not taken anything as she cannot keep anything down. - Related Data Home Medications Medication Instructions Recorded Confirmed Acyclovir [Zovirax] 800 mg PO DAILY 12/20/16 07/18/20 Dow-Puxs-Lrwtp Acid 1 cap PO DAILY 05/24/20 07/18/20 [-U Capsule (formulary)] Previous Rx's Medication Instructions Recorded Ibuprofen [Motrin] 600 mg PO Q8HR PRN #20 tab 09/14/23 Allergies Allergy/AdvReac Type Severity Reaction Status Date / Time Penicillins Allergy Rash/Hives Verified 01/28/24 10:01 shellfish derived [Shellfish] Allergy Rash/Hives Verified 01/28/24 10:01 Review of Systems ROS Statement: Those systems with pertinent positive or pertinent negative responses have been documented in the HPI. ROS Other: All systems not noted in ROS Statement are negative. Past Medical History Past Medical History: No Reported History Additional Past Medical History / Comment(s): herpes History of Any Multi-Drug Resistant Organisms: None Reported, MRSA Date of last positivie culture/infection: 2012 MDRO Source:: right buttock Past Surgical History: Section Additional Past Surgical History / Comment(s): D&C, endoscopy Past Psychological History: Anxiety, Depression Smoking Status: Never smoker Past Alcohol Use History: Occasional Past Drug Use History: None Reported General Exam Limitations: no limitations General appearance: alert, in no apparent distress Head exam: Present: atraumatic, normocephalic, normal inspection Eye exam: Present: normal appearance, PERRL, EOMI. Absent: scleral icterus, con junctival injection, periorbital swelling Respiratory exam: Present: normal lung sounds bilaterally. Absent: respiratory distress, wheezes, rales, rhonchi, stridor Cardiovascular Exam: Present: regular rate, normal rhythm, normal heart sounds. Absent: systolic murmur, diastolic murmur, rubs, gallop, clicks GI/Abdominal exam: Present: soft, tenderness (Generalized), normal bowel sounds Neurological exam: Present: alert, oriented X3, CN II-XII intact Psychiatric exam: Present: normal affect, normal mood Skin exam: Present: warm, dry, intact, normal color. Absent: rash Course Vital Signs 01/28/24 01/28/24 09:57 11:31 Temperature 98.6 F 97.5 F L Pulse Rate 76 68 Respiratory 18 18 Rate Blood Pressure 127/92 122/81 O2 Sat by Pulse 99 100 Oximetry Medical Decision Making - Medical Decision Making Was pt. sent in by a medical professional or institution (, PA, PREVENTATIVE MAINTENANCE TECHNICIAN, urgent care, hospital, or shelter...) When possible be specific @ -No Did you speak to anyone other than the patient for history (EMS, parent, family, police, friend...)? What history was obtained from this source @ -No Did you review nursing and triage notes (agree or disagree)? Why? @ -I reviewed and agree with nursing and triage notes Were old charts reviewed (outside hosp., previous admission, EMS record, old EKG, old radiological studies, urgent care reports/EKG's, shelter records)? Report findings @ -No old charts were reviewed Differential Diagnosis (chest pain, altered mental status, abdominal pain women, abdominal pain men, vaginal bleeding, weakness, fever, dyspnea, syncope, headache, dizziness, GI bleed, back pain, seizure, CVA, palpatations, mental health, musculoskeletal)? @ -Differential Abdominal Pain Women: Appendicitis, Cholecystitis, diverticulosis, ischemic bowel, pancreatitis, hepatitis, UTI, gastroenteritis, AAA, incarcerated hernia, bowel obstruction, constipation, inflammatory bowel, hepatitis, peptic ulcer disease, splenic infarction, perforated viscus, vulvitis, ovarian torsion, PID, kidney stone, placenta abruption, this is not meant to be an all-inclusive list EKG interpreted by me (3pts min.). @ -None X-rays interpreted by me (1pt min.). @ -None done CT interpreted by me (1pt min.). @ -None done U/S interpreted by me (1pt. min.). @ -None done What testing was considered but not performed or refused? (CT, X-rays, U/S, labs)? Why? @ -None What meds were considered but not given or refused? Why? @ -None Did you discuss the management of the patient with other professionals (ysabel limon i.e. , PA, PREVENTATIVE MAINTENANCE TECHNICIAN, lab, RT, psych nurse, social worker clinical, electronic plotting system operator, teacher, [employer] revenue officer, porter sample case)? Give summary @ -No Was smoking cessation discussed for >3mins.? @ -No Was critical care preformed (if so, how long)? @ -No Were there social determinants of health that impacted care today? How? (Homelessness, low income, unemployed, alcoholism, drug addiction, transportation, low edu. Level, literacy, decrease access to med. care, prison, rehab)? @ -No Was there de-escalation of care discussed even if they declined (Discuss DNR or withdrawal of care, Hospice)? DNR status @ -No What co-morbidities impacted this encounter? (DM, HTN, Smoking, COPD, CAD, Cancer, CVA, ARF, Chemo, Hep., AIDS, mental health diagnosis, sleep apnea, morbid obesity)? @ -None Was patient admitted / discharged? Hospital course, mention meds given and route, prescriptions, significant lab abnormalities, going to OR and other pertinent info. @ -Discharge. Patient is a 38-year-old female presenting to the ER with chief complaint of nausea, vomiting and diarrhea. Patient recently restarted Wegovy. History and physical exam completed. Vitals stable. Patient in no signs of acute distress and nontoxic-appearing. Patient had generalized tenderness to abdominal palpation. Normal bowel sounds. Patient received 1 L IV fluids and Zofran, with improvement of symptoms. Labs obtained unremarkable. Urine without signs of infection. Urine hCG negative. Results discussed with patient, all questions answered. Patient discharged with starter pack of Zofran. Return parameters discussed. Patient be discharged in stable condition with follow-up to PCP. Patient expressed understanding and agreement with care plan. Undiagnosed new problem with uncertain prognosis? @ -No Drug Therapy requiring intensive monitoring for toxicity (Heparin, Nitro, Insulin, Cardizem)? @ -No Were any procedures done? @ -No Diagnosis/symptom? @ -Nausea/vomiting/diarrhea Acute, or Chronic, or Acute on Chronic? @ -Acute Uncomplicated (without systemic symptoms) or Complicated (systemic symptoms)? @ -Uncomplicated Side effects of treatment? @ -No Exacerbation, Progression, or Severe Exacerbation? @ -No Poses a threat to life or bodily function? How? (Chest pain, USA, [place], pneumonia, PE, COPD, DKA, ARF, appy, cholecystitis, CVA, Diverticulitis, Homicidal, Suicidal, threat to staff... and all critical care pts) @ -No - Lab Data Result diagrams: 01/28/24 10:18 01/28/24 10:18 Lab Results 01/28/24 01/28/24 01/28/24 Range/Units 10:18 10:18 10:18 WBC 7.2 (3.8-10.6) k/uL RBC 5.38 (3.80-5.40) m/uL Hgb 15.3 (11.4-16.0) gm/dL Hct 45.8 (34.0-46.0) % MCV 85.0 (80.0-100.0) fL MCH 28.4 (25.0-35.0) pg MCHC 33.4 (31.0-37.0) g/dL RDW 14.6 (11.5-15.5) % Plt Count 249 (150-450) k/uL MPV 8.1 Sodium (137-145) mmol/L Potassium (3.5-5.1) mmol/L Chloride (98-107) mmol/L Carbon Dioxide (22-30) mmol/L Anion Gap mmol/L BUN (7-17) mg/dL Creatinine (0.52-1.04) mg/dL Est GFR (CKD-EPI)AfAm (>60 ml/min/1.73 sqM) Est GFR (CKD-EPI)NonAf (>60 ml/min/1.73 sqM) Glucose (74-99) mg/dL Calcium (8.4-10.2) mg/dL Total Bilirubin (0.2-1.3) mg/dL AST (14-36) U/L ALT (4-34) U/L Alkaline Phosphatase (38-126) U/L Total Protein (6.3-8.2) g/dL Albumin (3.5-5.0) g/dL Amylase (30-110) U/L Lipase (23-300) U/L Urine Color Yellow Urine Appearance Clear (Clear) Urine pH 5.5 (5.0-8.0) Ur Specific [place] 1.031 (1.001-1.035) Urine Protein Trace H (Negative) Urine Glucose (UA) Negative (Negative) Urine Ketones Negative (Negative) Urine Blood Negative (Negative) Urine Nitrite Negative (Negative) Urine Bilirubin Negative (Negative) Urine Urobilinogen <2.0 (<2.0) mg/dL Ur Leukocyte Esterase Negative (Negative) Urine HCG, Qual Not Detected (Not Detectd) 01/28/24 Range/Units 10:18 WBC (3.8-10.6) k/uL RBC (3.80-5.40) m/uL Hgb (11.4-16.0) gm/dL Hct (34.0-46.0) % MCV (80.0-100.0) fL MCH (25.0-35.0) pg MCHC (31.0-37.0) g/dL RDW (11.5-15.5) % Plt Count (150-450) k/uL MPV Sodium 142 (137-145) mmol/L Potassium 4.4 (3.5-5.1) mmol/L Chloride 106 (98-107) mmol/L Carbon Dioxide 28 (22-30) mmol/L Anion Gap 8 mmol/L BUN 16 (7-17) mg/dL Creatinine 0.78 (0.52-1.04) mg/dL Est GFR (CKD-EPI)AfAm >90 (>60 ml/min/1.73 sqM) Est GFR (CKD-EPI)NonAf >90 (>60 ml/min/1.73 sqM) Glucose 90 (74-99) mg/dL Calcium 9.1 (8.4-10.2) mg/dL Total Bilirubin 0.6 (0.2-1.3) mg/dL AST 24 (14-36) U/L ALT 16 (4-34) U/L Alkaline Phosphatase 77 (38-126) U/L Total Protein 7.8 (6.3-8.2) g/dL Albumin 4.6 (3.5-5.0) g/dL Amylase 57 (30-110) U/L Lipase 33 (23-300) U/L Urine Color Urine Appearance (Clear) Urine pH (5.0-8.0) Ur Specific [place] (1.001-1.035) Urine Protein (Negative) Urine Glucose (UA) (Negative) Urine Ketones (Negative) Urine Blood (Negative) Urine Nitrite (Negative) Urine Bilirubin (Negative) Urine Urobilinogen (<2.0) mg/dL Ur Leukocyte Esterase (Negative) Urine HCG, Qual (Not Detectd) Disposition Clinical Impression: Nausea & vomiting, Diarrhea Disposition: HOME SELF-CARE Condition: Stable Instructions (If sedation given, give patient instructions): Acute Nausea and Vomiting (ED) Additional Instructions: Please follow-up with PCP. Return to the ER for any new or worsening symptoms. Is patient prescribed a controlled substance at d/c from ED?: No Referrals: Edgar Do MD [Primary Care Provider] - 1-2 days Time of Disposition: 11:19
[2024-01-28] MEDS: ONDANSETRON 4 MG/2 ML VIAL IVP STA (10:32)
[2024-01-28 10:46] VITALS: RESP 18
[2024-01-28 10:46] LABS: HCT 45.8 % (34.0-46.0); HGB 15.3 gm/dL (11.4-16.0); MCH 28.4 pg (25.0-35.0); MCHC 33.4 g/dL (31.0-37.0); Mean Platelet Volume 8.1; Platelet Count 249 k/uL (150-450); RBC 5.38 m/uL (3.80-5.40); RDW 14.6 % (11.5-15.5); WBC 7.2 k/uL (3.8-10.6)
[2024-01-28 10:51] LABS: Appearance,Urine Clear (Clear); Bilirubin,Urine Negative (Negative); Blood,Urine Negative (Negative); Color,Urine Yellow; Glucose,Urine (UA) Negative (Negative); Ketones,Urine Negative (Negative); Leukocyte Esterase,Urine Negative (Negative); Nitrite,Urine Negative (Negative); PH, Urine 5.5 (5.0-8.0); Protein,Urine Trace (Negative); Specific Gravity,Urine 1.031 (1.001-1.035); Urobilinogen,Urine <2.0 mg/dL (<2.0)
[2024-01-28 11:14] LABS: ALT 16 U/L (4-34); AST 24 U/L (14-36); African American GFR (CKD) >90 (>60 ml/min/1.73 sqM); Albumin 4.6 g/dL (3.5-5.0); Alkaline Phosphatase 77 U/L (38-126); Amylase 57 U/L (30-110); Anion Gap 8 mmol/L; Blood Urea Nitrogen 16 mg/dL (7-17); Calcium 9.1 mg/dL (8.4-10.2); Carbon Dioxide 28 mmol/L (22-30); Chloride 106 mmol/L (98-107); Glucose 90 mg/dL (74-99); Lipase 33 U/L (23-300); Non-African American GFR(CKD) >90 (>60 ml/min/1.73 sqM); Potassium 4.4 mmol/L (3.5-5.1); Sodium 142 mmol/L (137-145); Total Bilirubin 0.6 mg/dL (0.2-1.3); Total Protein 7.8 g/dL (6.3-8.2)
[2024-01-28] MEDS: ONDANSETRON 4 MG ODT STARTER PACK 2 TAB BTL PO STA (11:16)
[2024-01-28 11:54] VITALS: BP 122/81; PULSE 68; TEMP 97.5
== END 2024-01-28 11:33 | disposition home or self-care (01) ==
LOC: EC 09:56
DX: R11.2 Nausea with vomiting, unspecified (principal); R19.7 Diarrhea, unspecified; Z86.59 Personal history of other mental and behavioral disorders; Z88.0 Allergy status to penicillin; Z91.013 Allergy to seafood
CPT/HCPCS: 99284 ×2; 96360; 36415; 80053; 82150; 83690; 85027; 81003; 81025; 96374; 96361; J2405; S0119

== ENCOUNTER → 2024-06-10 | Outpatient (CLI) | payer OTHER ==
--- NOTE | 2024-06-10 07:55 | MM ---
Reason for Exam: Clinical finding. Baseline mammogram. Indicated Problems: Lump or thickening of the right side for 2 Week(s). Patient History: Menarche at age 13. First Full-Term at age 21. Last menstrual period: 06/09/2024 Risk Values: Anita 5 year model risk: 0.3%. NCI Lifetime model risk: 8.2%. Prior Study Comparison: Patient's first Mammogram. Tissue Density: The breasts are heterogeneously dense, which may obscure small masses. Findings: Analyzed By CAD. 9 mm obscured nodular asymmetric density superior right MLO view posterior depth on 3-D images, also incompletely disperses on spot compression views. Dense tissue is present throughout. Palpable marker placed along the inferior aspect of the right breast. No suspicious microcalcification or other discrete abnormality is seen. Overall Assessment: Incomplete: need additional imaging evaluation, BI-RAD 0 Management: Diagnostic Breast Ultrasound of the right breast. Electronically signed and approved by: Fanta Olmos M.D. Radiologist
--- NOTE | 2024-06-10 08:19 | USB ---
Reason for Exam: Clinical finding. Patient History: Menarche at age 13. First Full-Term at age 21. Risk Values: Anita 5 year model risk: 0.3%. NCI Lifetime model risk: 8.2%. Technique: Method: Whole Breast Handheld. Findings: The whole breast of the right breast, the area of palpable concern of the right breast, the axilla of the right breast and the retroareolar of the right breast were scanned. A complete US of all four quadrants of the breast, axilla, and retro-areolar region were reviewed. * Dense tissues are present throughout. * At the 9:00 position, 5 cm from the nipple, there is a cyst cluster measuring 1.5 x 0.8 x 0.7 cm. * At the 9:00 position, 6 cm from the nipple, there is a small 8 x 6 x 4 mm intramammary lymph node that has been uniform cortex. * At the 10:00 position, 5 cm from the nipple, there are a couple small adjacent cysts measuring up to 4 mm. * No other solid or cystic lesion or axillary lymphadenopathy. Overall Assessment: Probably benign, BI-RAD 3 Management: Diagnostic Mammogram of the right breast in 6 months. Further clinical management of any suspicious palpable areas. Patient should continue monthly self breast exams. Results were given to the patient verbally at the time of exam. Electronically signed and approved by: Fanta Olmos M.D. Radiologist
== END | disposition home or self-care (01) ==
LOC: RADMAMWWP 07:04
PROVIDERS: ATTEND Family Medicine
DX: N63.10 Unspecified lump in the right breast, unspecified quadrant (principal); R92.333 Mammographic heterogeneous density, bilateral breasts
CPT/HCPCS: 77066; 76641; G0279; 77062

== ENCOUNTER → 2024-06-22 | Outpatient (CLI) | payer OTHER ==
--- NOTE | 2024-06-22 16:27 | US ---
EXAMINATION TYPE: US kidneys/renal and bladder DATE OF EXAM: 06/22/2024 COMPARISON: NONE CLINICAL INDICATION: Female, 38 years old with history of N28.9 LOW KIDNEY FUNCTION; EXAM MEASUREMENTS: Right Kidney: 9.9 x 4.9 x 4.7 cm Left Kidney: 11.8 x 4.7 x 4.7 cm Post Void Residual Volume: 77 mL Right Kidney: wnl Left Kidney: 1.1cm echogenic focus with twinkle artifact which is linear shaped. Bladder: Anechoic Bilateral Jets seen: yes Normal Post Void Residual: mild post void residual There is no evidence for hydronephrosis at this point in time. No nephrolithiasis is seen. No halley s are identified. The urinary bladder is anechoic. Bilateral ureteral jets are seen. IMPRESSION: 1. No evidence for obstructive uropathy. 2. Left nonobstructing calculus first vascular calculus.
== END | disposition home or self-care (01) ==
LOC: RADUSWWP 15:58
PROVIDERS: ATTEND Family Medicine
DX: N28.9 Disorder of kidney and ureter, unspecified (principal)
CPT/HCPCS: 76770

== ENCOUNTER → 2024-12-12 | Outpatient (CLI) | payer OTHER ==
--- NOTE | 2024-12-12 13:48 | MM ---
Reason for Exam: Follow-up at short interval from prior study. Last screening mammogram was performed 6 month(s) ago. Patient History: Menarche at age 13. First Full-Term at age 21. Risk Values: Anita 5 year model risk: 0.3%. NCI Lifetime model risk: 8.1%. Prior Study Comparison: 06/10/2024 Bilateral MG 3D diag mammo w/cad [facility]. Tissue Density: Right: The breasts are heterogeneously dense, which may obscure small masses. Findings: Analyzed By CAD. Circumscribed nodularity posterior superior right breast remains unchanged for 6 months. No suspicious microcalcification or other discrete abnormality is seen. An additional short interval follow-up can demonstrate at least one-year stability. Overall Assessment: Probably benign, BI-RAD 3 Management: Diagnostic Mammogram of both breasts in 6 months. Total one year follow-up right breast and annual exam of the left breast. Results were given to the patient verbally at the time of exam. Patient should continue monthly self-breast exams. A clinical breast exam by your physician is recommended on an annual basis. This exam should not preclude additional follow-up of suspicious palpable abnormalities. Note on Anita scores and lifetime risk: 1. A Anita score greater than 3% is considered moderate risk. If this is the case, consider specialist referral to assess eligibility for a risk reducing agent. 2. If overall lifetime risk for the development of breast cancer is 20% or higher, the patient may qualify for future screening with alternating mammogram and breast MRI. [facility], , 12/12/2024 1:45 PM. Electronically signed and approved by: Fanta Olmos M.D. Radiologist
== END | disposition home or self-care (01) ==
LOC: RADMAMWWP 13:18
PROVIDERS: ATTEND Family Medicine
DX: R92.2 Inconclusive mammogram (principal); R92.333 Mammographic heterogeneous density, bilateral breasts; N60.09 Solitary cyst of unspecified breast
CPT/HCPCS: 77065; G0279; 77061

== ENCOUNTER 2025-03-02 13:06 | Emergency (ER) | payer OTHER ==
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
[2025-03-02] MEDS: ACETAMINOPHEN TAB 500 MG TAB PO STA (15:58)
[2025-03-02 16:10] VITALS: BP 140/86; PULSE 77; RESP 18; TEMP 97.7
== END 2025-03-02 16:10 | disposition home or self-care (01) ==
LOC: EC 13:06
DX: R51.9 Headache, unspecified (principal); Z88.0 Allergy status to penicillin; Z91.013 Allergy to seafood; V43.52XA Car driver injured in collision with other type car in traffic accident, initial encounter
CPT/HCPCS: 70450; 72125; 99284